=== PATIENT | male | born 1965 | race Caucasian/White ===

== ENCOUNTER 2018-04-23 17:28 | Inpatient (IN) | payer SELFPAY ==
[~2018-04-23] VITALS: Ht 182.9 cm; Wt 104.8 kg
[2018-04-23 17:33] VITALS: BP 233/109; PULSE 45; PULSE 46; RESP 16; TEMP 97.8; O2SAT 98
[2018-04-23] MEDS ORDERED: METO100T PO (17:54)
[2018-04-23] MEDS ORDERED: FURO1TAB61 PO (17:54)
[2018-04-23] MEDS ORDERED: CLON-481 PO (17:54)
[2018-04-23] MEDS ORDERED: APIX5TAB PO (17:54)
[2018-04-23] MEDS ORDERED: AMIO200T PO (17:54)
[2018-04-23] MEDS ORDERED: LISI40TA PO (17:54)
[2018-04-23] MEDS ORDERED: ZOCO80TA PO (17:54)
[2018-04-23 17:57] VITALS: RESP 18; O2SAT 98
[2018-04-23] MEDS ORDERED: cloNIDine HCL 0.2 MG TAB PO ONE (18:00)
[2018-04-23] MEDS ORDERED: NOVONP2 SQ (18:01)
[2018-04-23] MEDS ORDERED: NOVORP2 SQ (18:01)
--- NOTE | 2018-04-23 18:11 | RADRPT ---
EXAM DATE: 04/23/2018 6:07 PM EDT AGE/SEX: 52 years / Male INDICATIONS: Syncope with lowered heart rate and high blood pressure. CLINICAL DATA: This is the patient's initial encounter. Patient reports that signs and symptoms have been present for 2 weeks and indicates a pain score of 0/10. MEDICAL/SURGICAL HISTORY: Hypertension. Atrial fibrillation. None. COMPARISON: No prior exams available for comparison. FINDINGS: A single AP view of the chest demonstrates the lungs to be symmetrically aerated without evidence of mass, infiltrate or effusion. The cardiomediastinal contours are unremarkable. Osseous structures a re intact. CONCLUSION: The lungs are clear. Electronically signed by: Jim White MD 04/23/2018 6:10 PM EDT
[2018-04-23 18:23] LABS: AUTOMATED NEUTROPHIL # 6.1 TH/MM3 (1.8-7.7); BASOPHIL # 0.1 TH/MM3 (0-0.2); BASOPHIL % 0.9 % (0.0-2.0); EOSINOPHIL # 0.4 TH/MM3 (0-0.4); EOSINOPHIL % 3.4 % (0.0-4.0); HEMOGLOBIN 15.6 GM/DL (13.0-17.0); LYMPH % 32.5 % (9.0-44.0); LYMPHOCYTE # 3.5 TH/MM3 (1.0-4.8); MEAN CELL VOLUME 89.3 FL (80.0-100.0); MEAN CORPUSCULAR HEMOGLOBIN 30.4 PG (27.0-34.0); MEAN PLATELET VOLUME 9.2 FL (7.0-11.0); MONO % 7.2 % (0.0-8.0); MONOCYTE # 0.8 TH/MM3 (0-0.9); PLATELET COUNT 220 TH/MM3 (150-450); RED BLOOD COUNT 5.15 MIL/MM3 (4.50-5.90); RED CELL DISTRIBUTION WIDTH 12.3 % (11.6-17.2); WHITE BLOOD COUNT 10.8 TH/MM3 (4.0-11.0)
[2018-04-23 18:31] LABS: INTERNATIONAL NORMALIZED RATIO 1.1 RATIO; PROTHROMBIN TIME - PATIENT 10.8 SEC (9.8-11.6)
[2018-04-23 18:45] VITALS: BP 220/100; PULSE 40; RESP 17; O2SAT 99
--- NOTE | 2018-04-23 18:47 | PD ---
Data Data Last Documented VS Vital Signs Date Time Temp Pulse Resp B/P (MAP) Pulse Ox O2 Delivery O2 Flow Rate FiO2 04/23/18 17:57 18 98 Room Air 04/23/18 17:50 46 04/23/18 17:33 97.8 Orders Orders Electrocardiogram (04/23/18 ) Electrocardiogram (04/23/18 17:56) Complete Blood Count With Diff (04/23/18 17:56) Comprehensive Metabolic Panel (04/23/18 17:56) Ckmb (Isoenzyme) Profile (04/23/18 17:56) Troponin I (04/23/18 17:56) Prothrombin Time / Inr (Pt) (04/23/18 17:56) Act Partial Throm Time (Ptt) (04/23/18 17:56) Magnesium (Mg) (04/23/18 17:56) Thyroid Stimulating Hormone (04/23/18 17:56) Chest, Single Ap (04/23/18 17:56) Ct Brain W/O Iv Contrast(Rout) (04/23/18 17:56) Iv Access Insert/Monitor (04/23/18 17:56) Ecg Monitoring (04/23/18 17:56) Oximetry (04/23/18 17:56) Clonidine (Catapres) (04/23/18 18:00) Labs Laboratory Tests Test 04/23/18 18:12 White Blood Count 10.8 TH/MM3 Red Blood Count 5.15 MIL/MM3 Hemoglobin 15.6 GM/DL Hematocrit 46.0 % Mean Corpuscular Volume 89.3 FL Mean Corpuscular Hemoglobin 30.4 PG Mean Corpuscular Hemoglobin Concent 34.0 % Red Cell Distribution Width 12.3 % Platelet Count 220 TH/MM3 Mean Platelet Volume 9.2 FL Neutrophils (%) (Auto) 56.0 % Lymphocytes (%) (Auto) 32.5 % Monocytes (%) (Auto) 7.2 % Eosinophils (%) (Auto) 3.4 % Basophils (%) (Auto) 0.9 % Neutrophils # (Auto) 6.1 TH/MM3 Lymphocytes # (Auto) 3.5 TH/MM3 Monocytes # (Auto) 0.8 TH/MM3 Eosinophils # (Auto) 0.4 TH/MM3 Basophils # (Auto) 0.1 TH/MM3 CBC Comment DIFF FINAL Differential Comment Prothrombin Time 10.8 SEC Prothromb Time International Ratio 1.1 RATIO Activated Partial Thromboplast Time 24.1 SEC MDM Supervised Visit with PIOTR: Yes Narrative Course I, Dr. Rodríguez, have reviewed the advance practice practitioner's documentation and am in agreement, met with the patient face to face, made the diagnosis, and the medical decision making was done by me. *My assessment and Findings: This patient had a syncopal episode. He does not have any history of such. He has chronic A. fib on Eliquis. He is very hypertensive and very bradycardic. His heart rate is sinus rhythm and 40. He will be a telemetry hospitalization for evaluation of this. Skip Rodríguez MD Apr 23, 2018 18:47
[2018-04-23 18:56] LABS: ALBUMIN 4.1 GM/DL (3.4-5.0); AST (GOT) 25 U/L (15-37); BICARBONATE 30.2 MEQ/L (21.0-32.0); BLOOD UREA NITROGEN 18 MG/DL (7-18); CALCIUM 9.5 MG/DL (8.5-10.1); CHLORIDE 100 MEQ/L (98-107); CREATININE 1.56 MG/DL (0.60-1.30); GLOMERULAR FILTRATION RATE 47 ML/MIN (>89); GLUCOSE,RANDOM 68 MG/DL (74-106); MAGNESIUM 2.2 MG/DL (1.5-2.5); SODIUM (NA) 141 MEQ/L (136-145)
[2018-04-23 18:57] LABS: ALT (GPT) 37 U/L (12-78)
--- NOTE | 2018-04-23 19:03 | RADRPT ---
EXAM DATE: 04/23/2018 6:33 PM EDT AGE/SEX: 52 years / Male INDICATIONS: Syncopal episode with low heart rate. CLINICAL DATA: This is the patient's initial encounter. Patient reports that signs and symptoms have been present for 1 day and indicates a pain score of 0/10. MEDICAL/SURGICAL HISTORY: Cardiovascular disease. Hypertension. Diabetes. AFIB None. RADIATION DOSE: 48.95 CTDI (mGy) COMPARISON: No prior exams available for comparison. TECHNIQUE: CT of the head without contrast. Using automated exposure control and adjustment of the mA and/or kV according to patient size, radiation dose was kept as low as reasonably achievable to ob tain optimal diagnostic quality images. DICOM format image data is available electronically for revi ew and comparison. FINDINGS: Noncontrast axial head CT demonstrates the ventricles to be normal in size and configuration with a n ormal sulcal pattern. No acute intracranial hemorrhage, acute cortical infarction, mass or midline sh ift is seen. There is benign-appearing mucosal disease in the right maxillary sinus. Posterior fossa structures are unremarkable. Bone windows are unremarkable. CONCLUSION: No evidence of acute intracranial pathology. No masses are identified. Electronically signed by: Eric Angelo MD 04/23/2018 7:02 PM EDT
[2018-04-23 19:06] LABS: ALKALINE PHOSPHATASE 102 U/L (45-117); TOTAL BILIRUBIN ADULT 0.5 MG/DL (0.2-1.0); TOTAL PROTEIN 8.1 GM/DL (6.4-8.2); TROPONIN I LESS THAN 0.02 NG/ML (0.02-0.05)
--- NOTE | 2018-04-23 19:41 | PD ---
HPI Chief Complaint: Cardiac Complaint Time Seen by Provider: 17:44 Travel History International Travel<30 days: No Contact w/Intl Traveler<30days: No Traveled to known affect area: No History of Present Illness HPI 52-year-old male the presents to the ED for evaluation of syncope and high blood pressure and low heart rate. Per patient he has been having episodes of high blood pressure as well as low heart rate follow-up almost a couple of weeks now. Per patient he started since . Per patient he quit drinking on . He has been having problems with his blood pressure ever since. Per patient he does have chronic blood pressure issues and A. fib. He takes medications for this. He apparently is now moving here from [facility] and has no primary care doctor or visual design lead in the area. He follows with a doctor over there and apparently this started him on amlodipine recently. Per patient his blood pressure usually is 150 systolic but then noted that his blood pressure has been a 200 systolic almost daily and he has been having headaches as well as noted that his heart rate has been low. Per patient his heart rates below 50s. This has never happened to him before. He denies increasing his metoprolol. He denies any chest pain or shortness of breath. No urinary or bowel movement issues. No fevers chills or sweats. He states that today he was checking his blood pressure and he passed out. He does have a history of having this in the past but only since . He has not seen anybody for this. He states that he is feeling lightheaded on occasion he has a headache with it. He takes Eliquis. PFSH Past Medical History Hx Anticoagulant Therapy: Yes Atrial Fibrillation: Yes Cardiovascular Problems: Yes High Cholesterol: Yes Diabetes: Yes Patient Takes Glucophage: No Diminished Hearing: No Hypertension: Yes Medical other: Yes Tetanus Vaccination: > 5 Years Influenza Vaccination: No Past Surgical History Cardiac Surgery: Yes (cardiac cath) Social History Alcohol Use: Yes (frequently) Tobacco Use: Yes (ocassionally) Substance Use: No Allergies-Medications (Allergen,Severity, Reaction): Coded Allergies: No Known Allergies (Verified Allergy, Unknown, 04/23/18) Reported Meds & Prescriptions Reported Meds & Active Scripts Active Reported Novolin N Inj (Insulin Human NPH) 1,000 Unit/10 Ml Vial 0 SQ BID Sliding Scale As Directed. Novolin R Inj (Insulin Human Regular) 1,000 Unit/10 Ml Vial 1-9 Units SQ ACHS Max dose at bedtime:( )units; sugars less than 70,(0) units; sugars 150-199,(1)unit; sugars 200-249,(3)units; sugars 250-299,(5) units; sugars 300-349,(7)units; sugars greater than 349,(9)units Amiodarone (Amiodarone HCl) 200 Mg Tab 200 Mg PO DAILY Lasix (Furosemide) 80 Mg Tab 80 Mg PO DAILY Metoprolol Tartrate 100 Mg Tab 100 Mg PO BID Lisinopril 40 Mg Tab 40 Mg PO DAILY Catapres (Clonidine) 0.3 Mg Tab 0.3 Mg PO TID Zocor (Simvastatin) 80 Mg Tab 80 Mg PO HS Eliquis (Apixaban) 5 Mg Tab 5 Mg PO BID Review of Systems Except as stated in HPI: all other systems reviewed are Neg Physical Exam Narrative GENERAL: SKIN: Warm and dry. HEAD: Atraumatic. Normocephalic. EYES: Pupils equal and round. No scleral icterus. No injection or drainage. ENT: No nasal bleeding or discharge. Mucous membranes pink and moist. Tongue is midline. No uvula deviation NECK: Trachea midline. No JVD. CARDIOVASCULAR: Bradicardic rate and rhythm. No murmurs, S3, S4. RESPIRATORY: No accessory muscle use. Clear to auscultation. Breath sounds equal bilaterally. GASTROINTESTINAL: Abdomen soft, non-tender, nondistended. Hepatic and splenic margins not palpable. MUSCULOSKELETAL: Extremities without clubbing, cyanosis, or edema. No obvious deformities. Full range of motion of the upper and lower extremities bilaterally. 2+ pulses bilaterally. NEUROLOGICAL: Awake and alert. No obvious cranial nerve deficits. Motor grossly within normal limits. Five out of 5 muscle strength in the arms and legs. Normal speech. PSYCHIATRIC: Appropriate mood and affect; insight and judgment normal. Data Data Last Documented VS Vital Signs Date Time Temp Pulse Resp B/P (MAP) Pulse Ox O2 Delivery O2 Flow Rate FiO2 04/23/18 18:45 40 17 220/100 (140) 99 Room Air 04/23/18 17:33 97.8 Orders Orders Electrocardiogram (04/23/18 ) Electrocardiogram (04/23/18 17:56) Complete Blood Count With Diff (04/23/18 17:56) Comprehensive Metabolic Panel (04/23/18 17:56) Ckmb (Isoenzyme) Profile (04/23/18 17:56) Troponin I (04/23/18 17:56) Prothrombin Time / Inr (Pt) (04/23/18 17:56) Act Partial Throm Time (Ptt) (04/23/18 17:56) Magnesium (Mg) (04/23/18 17:56) Thyroid Stimulating Hormone (04/23/18 17:56) Chest, Single Ap (04/23/18 17:56) Ct Brain W/O Iv Contrast(Rout) (04/23/18 17:56) Iv Access Insert/Monitor (04/23/18 17:56) Ecg Monitoring (04/23/18 17:56) Oximetry (04/23/18 17:56) Clonidine (Catapres) (04/23/18 18:00) CKMB (04/23/18 18:12) CKMB% (04/23/18 18:12) Nifedipine Sr (Procardia Xl) (04/23/18 20:15) Labs Laboratory Tests Test 04/23/18 18:12 White Blood Count 10.8 TH/MM3 Red Blood Count 5.15 MIL/MM3 Hemoglobin 15.6 GM/DL Hematocrit 46.0 % Mean Corpuscular Volume 89.3 FL Mean Corpuscular Hemoglobin 30.4 PG Mean Corpuscular Hemoglobin Concent 34.0 % Red Cell Distribution Width 12.3 % Platelet Count 220 TH/MM3 Mean Platelet Volume 9.2 FL Neutrophils (%) (Auto) 56.0 % Lymphocytes (%) (Auto) 32.5 % Monocytes (%) (Auto) 7.2 % Eosinophils (%) (Auto) 3.4 % Basophils (%) (Auto) 0.9 % Neutrophils # (Auto) 6.1 TH/MM3 Lymphocytes # (Auto) 3.5 TH/MM3 Monocytes # (Auto) 0.8 TH/MM3 Eosinophils # (Auto) 0.4 TH/MM3 Basophils # (Auto) 0.1 TH/MM3 CBC Comment DIFF FINAL Differential Comment Prothrombin Time 10.8 SEC Prothromb Time International Ratio 1.1 RATIO Activated Partial Thromboplast Time 24.1 SEC Blood Urea Nitrogen 18 MG/DL Creatinine 1.56 MG/DL Random Glucose 68 MG/DL Total Protein 8.1 GM/DL Albumin 4.1 GM/DL Calcium Level 9.5 MG/DL Magnesium Level 2.2 MG/DL Alkaline Phosphatase 102 U/L Aspartate Amino Transf (AST/SGOT) 25 U/L Alanine Aminotransferase (ALT/SGPT) 37 U/L Total Bilirubin 0.5 MG/DL Sodium Level 141 MEQ/L Potassium Level 3.7 MEQ/L Chloride Level 100 MEQ/L Carbon Dioxide Level 30.2 MEQ/L Anion Gap 11 MEQ/L Estimat Glomerular Filtration Rate 47 ML/MIN Total Creatine Kinase 163 U/L Creatine Kinase MB 2.3 NG/ML Troponin I LESS THAN 0.02 NG/ML Thyroid Stimulating Hormone 3rd Gen 1.280 uIU/ML MDM Medical Decision Making Medical Screen Exam Complete: Yes Emergency Medical Condition: Yes Medical Record Reviewed: Yes Interpretation(s) CBC & BMP Diagram 04/23/18 18:12 Total Protein 8.1, Albumin 4.1, Calcium Level 9.5, Magnesium Level 2.2, Alkaline Phosphatase 102, Aspartate Amino Transf (AST/SGOT) 25, Alanine Aminotransferase (ALT/SGPT) 37, Total Bilirubin 0.[address] 04/23/181755 Signed Impressions: CONCLUSION: No evidence of acute intracranial pathology. No masses are identified. Chest X-Ray 04/23/181755 Signed Impressions: CONCLUSION: The lungs are clear. Troponin and CK-MB negative EKG shows sinus bradycardia but no sign of acute ischemia read by me and attending. Differential Diagnosis Hypertensive emergency versus hypertensive urgency versus syncope versus presyncope versus arrhythmia versus symptomatic bradycardia versus medication side effect versus ACS Narrative Course 52-year-old male the presents to the ED for evaluation of high blood pressure, syncope and bradycardia. Patient was properly examined and was found to have signs and symptoms of unclear etiology. He does take multiple medications for blood pressure and I wonder if this is related to that. He was recently started amlodipine on January and his symptoms started since . His been having a lot of passing out events. His blood pressure is high but his rate is slow in the 40s. He has had multiple syncopal episodes. Labs and imaging were ordered. EKG showed sinus bradycardia otherwise no sign of acute ischemia and arrhythmia. Blood pressure elevated and was given clonidine as before she would not have hydralazine IV in the ED to see if it will help. It brought down his blood pressure somewhat. Labs and imaging otherwise unremarkable. No sign of CVA. Unclear to go the symptoms were as highly suspect that his bradycardia is causing the syncopal episodes. At this time a recommend admission for further evaluation as patient has no primary care doctor in the area and has never had the syncopal episodes before. He currently has no cardio is in the area and his doctors are in [facility]. Patient and my attending Dr. Rodríguez who evaluated the patient with me and agrees with plan. Patient agrees to admission. CYNDI was paged and Dr Sanches agrees with admission. Diagnosis Primary Impression: Syncope Qualified Codes: R55 - Syncope and collapse Additional Impressions: Bradycardia Hypertensive urgency Admitting Information Admitting Physician Requests: Observation Yousuf Gunn Apr 23, 2018 19:41
--- NOTE | 2018-04-23 20:06 | HHI.HP ---
[facility] No Primary Care Physician Admission Diagnosis Diagnoses: (1) Syncope Diagnosis: Principal (2) Bradycardia Diagnosis: Principal (3) A-fib Diagnosis: Principal (4) HTN (hypertension) Diagnosis: Principal (5) Renal insufficiency Diagnosis: Principal (6) Alcohol use Diagnosis: Principal (7) DM (diabetes mellitus) Diagnosis: Principal Travel History International Travel<30 Days: No Contact w/Intl Traveler <30 Da: No Traveled to Known Affected Are: No History of Present Illness This is a 52-year-old male with a PMH of A. fib on Eliquis, HTN, Hyperlipidemia , DM and h/o Alcohol Abuse who was brought to the ER after syncopal event. Reports dizziness, lightheadedness prior to syncope. States he's had h/o similar symptoms in the past for which he was being seen by his Kitchen Runner in [place], however he recently moved here 2 months ago and doesn't have local Kitchen Runner. Also admits to history of heavy alcohol abuse, drinks 1/5th of vodka regularly, however states he quit drinking after and has had worsening dizziness and "shakiness" since then. Notes associated chest pressure , substernal, intermittent, moderate, 6/10, nonradiating. On arrival, BP 233/ 109, HR 45, O2 sat 98% on RA, Afebrile. S/p Clonidine in ER. CBC unremarkable. Chemistry unremarkable except for creatinine 1.56, no previous labs for comparison. Troponin negative. INR 1.1. CXR with no acute findings. CT Head negative. Review of Systems Except as stated in HPI: all other systems reviewed are Neg ROS: 14 point review of systems otherwise negative. Past Family Social History Past Medical History PMH: A. fib on Eliquis, HTN, Hyperlipidemia, DM and h/o Alcohol Abuse Past Surgical History PAST SURGICAL HISTORY: Cardiac Cath Allergies: Coded Allergies: No Known Allergies (Verified Allergy, Unknown, 04/23/18) Family History PAST FAMILY HISTORY: Reviewed. No h/o DM or CAD Social History PAST SOCIAL HISTORY: h/o Alcohol Abuse, quit 3wks ago. Occasional tobacco. Negative for drugs. Physical Exam Vital Signs Vital Signs Date Time Temp Pulse Resp B/P (MAP) Pulse Ox O2 Delivery O2 Flow Rate FiO2 04/23/18 18:45 40 17 220/100 (140) 99 Room Air 04/23/18 17:57 18 98 Room Air 04/23/18 17:50 46 20 98 Room Air 04/23/18 17:33 97.8 45 16 233/109 (150) 98 Physical Exam PE: GENERAL: Pleasant middle-aged white male in no acute distress. HEENT: PERRLA, EOMI. No scleral icterus or conjunctival pallor. No lid lag or facial droop. CARDIOVASCULAR: Regular rate and rhythm. No obvious murmurs to auscultation. No chest tenderness to palpation. RESPIRATORY: No obvious rhonchi or wheezing. Clear to auscultation. Breath sounds equal bilaterally. GASTROINTESTINAL: Abdomen soft, non-tender, nondistended. BS normal. MUSCULOSKELETAL: Extremities without clubbing, cyanosis, or edema. No obvious deformities. NEUROLOGICAL: Awake, alert and oriented x4. No focal neurologic deficits. Moving both upper and lower extremities spontaneously. Laboratory Laboratory Tests Test 04/23/18 18:12 White Blood Count 10.8 Red Blood Count 5.15 Hemoglobin 15.6 Hematocrit 46.0 Mean Corpuscular Volume 89.3 Mean Corpuscular Hemoglobin 30.4 Mean Corpuscular Hemoglobin Concent 34.0 Red Cell Distribution Width 12.3 Platelet Count 220 Mean Platelet Volume 9.2 Neutrophils (%) (Auto) 56.0 Lymphocytes (%) (Auto) 32.5 Monocytes (%) (Auto) 7.2 Eosinophils (%) (Auto) 3.4 Basophils (%) (Auto) 0.9 Neutrophils # (Auto) 6.1 Lymphocytes # (Auto) 3.5 Monocytes # (Auto) 0.8 Eosinophils # (Auto) 0.4 Basophils # (Auto) 0.1 CBC Comment DIFF FINAL Differential Comment Prothrombin Time 10.8 Prothromb Time International Ratio 1.1 Activated Partial Thromboplast Time 24.1 Blood Urea Nitrogen 18 Creatinine 1.56 Random Glucose 68 Total Protein 8.1 Albumin 4.1 Calcium Level 9.5 Magnesium Level 2.2 Alkaline Phosphatase 102 Aspartate Amino Transf (AST/SGOT) 25 Alanine Aminotransferase (ALT/SGPT) 37 Total Bilirubin 0.5 Sodium Level 141 Potassium Level 3.7 Chloride Level 100 Carbon Dioxide Level 30.2 Anion Gap 11 Estimat Glomerular Filtration Rate 47 Total Creatine Kinase 163 Creatine Kinase MB 2.3 Troponin I LESS THAN 0.02 Thyroid Stimulating Hormone 3rd Gen 1.280 Result Diagram: 04/23/18181104/23/181811 Caprini VTE Risk Assessment Caprini VTE Risk Assessment: Mod/High Risk (score >= 2) Caprini Risk Assessment Model Point Value = 1 Point Value = 2 Point Value = 3 Point Value = 5 Age 41-60 Minor surgery BMI > 25 kg/m2 Swollen legs Varicose veins or History of unexplained or recurrent spontaneous Oral contraceptives or hormone replacement Sepsis (< 1 month) Serious lung disease, including pneumonia (< 1 month) Abnormal pulmonary function Acute myocardial infarction Congestive heart failure (< 1 month) History of inflammatory bowel disease Medical patient at bed rest Age 61-74 Arthroscopic surgery Major open surgery (> 45 min) Laparoscopic surgery (> 45 min) Malignancy Confined to bed (> 72 hours) Immobilizing plaster cast Central venous access Age >= 75 History of VTE Family history of VTE Factor V Leiden Prothrombin [id number] Lupus anticoagulant Anticardiolipin antibodies Elevated serum homocysteine Heparin-induced thrombocytopenia Other congenital or acquired thrombophilia Stroke (< 1 month) Elective arthroplasty Hip, pelvis, or leg fracture Acute spinal cord injury (< 1 month) Prophylaxis Regimen Total Risk Factor Score Risk Level Prophylaxis Regimen 0-1 Low Early ambulation 2 Moderate Order ONE of the following: *Sequential Compression Device (SCD) *Heparin 5000 units SQ BID 3-4 Higher Order ONE of the following medications: *Heparin 5000 units SQ TID *Enoxaparin/Lovenox 40 mg SQ daily (WT < 150 kg, CrCl > 30 mL/min) *Enoxaparin/Lovenox 30 mg SQ daily (WT < 150 kg, CrCl > 10-29 mL/min) *Enoxaparin/Lovenox 30 mg SQ BID (WT < 150 kg, CrCl > 30 mL/min) AND/OR *Sequential Compression Device (SCD) 5 or more Highest Order ONE of the following medications: *Heparin 5000 units SQ TID (Preferred with Epidurals) *Enoxaparin/Lovenox 40 mg SQ daily (WT < 150 kg, CrCl > 30 mL/min) *Enoxaparin/Lovenox 30 mg SQ daily (WT < 150 kg, CrCl > 10-29 mL/min) *Enoxaparin/Lovenox 30 mg SQ BID (WT < 150 kg, CrCl > 30 mL/min) AND *Sequential Compression Device (SCD) Assessment and Plan Problem List: (1) Syncope ICD Code: R55 - Syncope and collapse Status: Acute (2) Bradycardia ICD Code: R00.1 - Bradycardia, unspecified Status: Acute (3) A-fib ICD Code: I48.91 - Unspecified atrial fibrillation (4) HTN (hypertension) ICD Code: I10 - Essential (primary) hypertension (5) Renal insufficiency ICD Code: N28.9 - Disorder of kidney and ureter, unspecified (6) Alcohol use ICD Code: Z78.9 - Other specified health status (7) DM (diabetes mellitus) ICD Code: E11.9 - Type 2 diabetes mellitus without complications Assessment and Plan A/P: 1. Syncope: likely due to symptomatic bradycardia, CT Head with no acute findings, images reviewed by me. Admit for Observation, Telemetry, check serial cardiac enzymes. Check Echo to eval for valvular abnormality/ cardiomyopathy. Consult Cardiology as needed. 2. Bradycardia: significant bradycardia w/ syncopal event/lightheadedness, HR 40's. Will hold Metoprolol, Clonidine and Amiodarone for right now. Telemetry , check Echo as above. Consult Cardiology for further evaluation/intervention. Check serial cardiac enzymes to r/o ACS as etiology for bradycardia 3. Afib: Chronic, controlled. Resume home Eliquis, hold Amiodarone and Metoprolol in light of above. Monitor on telemetry 4. HTN: Uncontrolled. BP 233/109, HR 45, hold B-anastacio/Clonidine for bradycardia, Hydralazine/Nifedipine as needed. 5. Renal Insufficiency: Creatinine 1.56, no previous labs for comparison. Presumably acute. IVF for hydration, monitor I/O. Check U/a and UDS. Repeat labs in am. 6. Alcohol Use/Abuse: h/o heavy alcohol abuse, quit 3wks ago, occasional tremulousness, CIWA, Seizure Precautions, MVT/Thiamine/Folate replacement. 7. DM: Sliding scale w/ Accu-Cheks 8. DVT Prophylaxis: Resume Eliquis 9. Social work for d/c planning as needed 10. Case discussed w/ ER physician at length, labs/records/imaging reviewed by me. Problem Qualifiers (1) Syncope: Qualified Codes: R55 - Syncope and collapse Kika Sanches MD Apr 23, 2018 20:06
[2018-04-23] MEDS ORDERED: ACETAMINOPHEN/HYDROcodone 325 MG/5 MG TAB PO PRN (20:15)
[2018-04-23] MEDS ORDERED: MAGNESIUM HYDROXIDE SUSP 30 ML CUP PO PRN (20:15)
[2018-04-23] MEDS ORDERED: GLUCAGON 1 MG/ML VIAL OTHER PRN (20:15)
[2018-04-23] MEDS ORDERED: LACTULOSE SYRUP 20 GM/30 ML CUP PO PRN (20:15)
[2018-04-23] MEDS ORDERED: BISACODYL 10 MG SUPP RECTAL PRN (20:15)
[2018-04-23] MEDS ORDERED: METOCLOPRAMIDE HCL 10 MG/2 ML VIAL IV PUSH PRN (20:15)
[2018-04-23] MEDS ORDERED: SENNOSIDES 8.6 MG TAB PO PRN (20:15)
[2018-04-23] MEDS ORDERED: DEXTROSE 50% IN WATER 50 ML VIAL(D50) IV PUSH PRN (20:15)
[2018-04-23] MEDS ORDERED: SODIUM CHLORIDE 0.9% FLUSH 10 ML FLUSH IV FLUSH PRN (20:15)
[2018-04-23] MEDS ORDERED: NIFEdipine 30 MG SUSTAINED RELEASE TAB PO ONE (20:15)
[2018-04-23] MEDS ORDERED: ACETAMINOPHEN 325 MG TAB PO PRN (20:15)
[2018-04-23] MEDS: APIXABAN 5 MG TABLET PO SCH (20:22)
[2018-04-23 20:24] VITALS: BP 179/102; PULSE 44; RESP 18; O2SAT 98
[2018-04-23] MEDS: SODIUM CHLOR 0.9% 1000 ML INJ 1,000 ML IV SCH (20:42)
[2018-04-23] MEDS: DOCUSATE SODIUM 50 MG/SENNA 8.6 MG TAB PO SCH (20:42)
[2018-04-23] MEDS: SODIUM CHLORIDE 0.9% FLUSH 10 ML FLUSH IV FLUSH SCH (20:43)
[2018-04-23] MEDS: INSULIN ASPART SUPPLEMENTAL SCALE SQ SCH (20:49)
[2018-04-23] MEDS ORDERED: HALOPERIDOL LACTATE 5 MG/ML AMP IM PRN (21:00)
[2018-04-23] MEDS ORDERED: LORazepam 2 MG TAB PO PRN (21:00)
[2018-04-23] MEDS ORDERED: LORazepam 1 MG TAB PO PRN (21:00)
[2018-04-23] MEDS ORDERED: FLUMAZENIL 0.5 MG/5 ML VIAL IV PUSH PRN (21:00)
[2018-04-23] MEDS ORDERED: LORazepam 2 MG/ML VIAL IV PUSH PRN ×3 (21:00)
[2018-04-23 21:07] VITALS: BP 179/102; PULSE 42; RESP 16; O2SAT 98
[2018-04-23] MEDS: THIAMINE HCL 100 MG TAB PO SCH (21:12)
[2018-04-23 21:53] VITALS: BP 156/87; PULSE 43; RESP 16; TEMP 97.8; O2SAT 98
[2018-04-24] VITALS (11 sets, daily range): BP systolic 166–211; BP diastolic 81–108; PULSE 45–57; RESP 16–20; TEMP 95.3–98.8; O2SAT 94–98
[2018-04-24] MEDS: SODIUM CHLOR 0.9% 1000 ML INJ 1,000 ML IV SCH (05:05)
[2018-04-24 05:32] LABS: BILIRUBIN, URINE NEG (NEG); BLOOD, URINE NEG (NEG); GLUCOSE,URINE >=500 mg/dL (NEG); HYALINE CAST, URINE 7 /lpf (RARE); KETONE, URINE NEG (NEG); MUCUS URINE FEW /lpf (OCC); NITRITE,URINE NEG (NEG); URINE COLOR YELLOW (YELLW/STRAW); URINE LEUKOCYTE ESTERASE NEG (NEG)
[2018-04-24 06:41] LABS: ALBUMIN 3.5 GM/DL (3.4-5.0); ALKALINE PHOSPHATASE 97 U/L (45-117); ALT (GPT) 31 U/L (12-78); AST (GOT) 22 U/L (15-37); BICARBONATE 28.6 MEQ/L (21.0-32.0); BLOOD UREA NITROGEN 13 MG/DL (7-18); CALCIUM 8.4 MG/DL (8.5-10.1); CHLORIDE 102 MEQ/L (98-107); CREATININE 1.28 MG/DL (0.60-1.30); GLOMERULAR FILTRATION RATE 59 ML/MIN (>89); GLUCOSE,RANDOM 408 MG/DL (74-106); SODIUM (NA) 139 MEQ/L (136-145); TOTAL BILIRUBIN ADULT 0.4 MG/DL (0.2-1.0); TOTAL PROTEIN 6.8 GM/DL (6.4-8.2); TROPONIN I LESS THAN 0.02 NG/ML (0.02-0.05)
[2018-04-24 07:23] LABS: BASOPHIL % 0.4 % (0.0-2.0); EOSINOPHIL # 0.2 TH/MM3 (0-0.4); EOSINOPHIL % 2.8 % (0.0-4.0); HEMATOCRIT 43.5 % (39.0-51.0); HEMOGLOBIN 14.8 GM/DL (13.0-17.0); LYMPH % 34.3 % (9.0-44.0); MEAN CORPUSCULAR HEMOGLOBIN 30.6 PG (27.0-34.0); MEAN PLATELET VOLUME 9.9 FL (7.0-11.0); MONO % 5.2 % (0.0-8.0); MONOCYTE # 0.5 TH/MM3 (0-0.9); NEUT % 57.3 % (16.0-70.0); PLATELET COUNT 171 TH/MM3 (150-450); RED BLOOD COUNT 4.83 MIL/MM3 (4.50-5.90); RED CELL DISTRIBUTION WIDTH 12.6 % (11.6-17.2); WHITE BLOOD COUNT 8.8 TH/MM3 (4.0-11.0)
[2018-04-24] MEDS: INSULIN ASPART SUPPLEMENTAL SCALE SQ SCH ×4 (08:00→20:58)
[2018-04-24] MEDS: THIAMINE HCL 100 MG TAB PO SCH (08:30)
[2018-04-24] MEDS: APIXABAN 5 MG TABLET PO SCH ×2 (08:31→20:57)
[2018-04-24] MEDS: FOLIC ACID 1 MG TAB PO SCH (08:32)
[2018-04-24] MEDS: SODIUM CHLORIDE 0.9% FLUSH 10 ML FLUSH IV FLUSH SCH ×2 (08:32→20:59)
[2018-04-24] MEDS: DOCUSATE SODIUM 50 MG/SENNA 8.6 MG TAB PO SCH ×2 (08:32→20:57)
[2018-04-24] MEDS: MULTIVITAMINS/MINERALS THERAPEUTIC TAB PO SCH (08:32)
[2018-04-24] MEDS: HYDROCHLOROTHIAZIDE 25 MG TAB PO SCH (08:45)
[2018-04-24] MEDS: LISINOPRIL 10 MG TAB PO SCH (08:45)
--- NOTE | 2018-04-24 08:49 | MB ---
cc: Mikel Jacob MD DATE: 04/24/2018 REASON FOR CONSULTATION: Syncope. HISTORY OF PRESENT ILLNESS: The patient is a very pleasant 52-year-old gentleman with a history of paroxysmal atrial fibrillation. The patient has previously been managed in [place] where he says he has had a cardioversion and atrial fibrillation ablation that was unsuccessful, partially due to his continued drinking. He has also apparently had a cardiac catheterization, which was normal, about 5 years ago. He lost his job and has moved to [place] and has been here for the last couple of months taking his medications, but he has not seen any physicians. Over the last month or so, he has noticed his blood pressure increasing and his heart rate continually being under 50. He has also felt a progressive exercise intolerance as well as periodic lightheadedness. He also notes a general pressure in the central chest, which is nonexertional and fairly long lasting over the last several weeks. Finally, he had an episode of actual syncope when he was taking his blood pressure yesterday. He says the cuff was inflating and all of a sudden he was on the floor and heard the blood pressure machine crash to the floor. He then presented to the hospital where he was found to be in a fairly slow sinus bradycardia. Currently, he is asymptomatic except some minor residual chest discomfort, which again is fairly long lasting. He is not currently lightheaded or dizzy or short of breath. PAST MEDICAL HISTORY: 1. Atrial fibrillation as described above, maintained on Eliquis. 2. Prior tobacco abuse. 3. Current alcohol abuse. 4. Hypertension. 5. Diabetes. CURRENT MEDICATIONS: 1. Folate. 2. Thiamine. 3. Eliquis 5 mg b.i.d. ALLERGIES: NO KNOWN DRUG ALLERGIES. PHYSICAL EXAMINATION: VITAL SIGNS: Afebrile, pulse 45, respiratory rate 16, blood pressure 166/81, saturating 95. Initial blood pressure was 233/109 GENERAL: Pleasant gentleman, in no distress. NECK: No JVD. LUNGS: Clear to auscultation bilaterally. CARDIOVASCULAR: Regular rate and rhythm. No murmurs appreciated. ABDOMEN: Benign. EXTREMITIES: No edema. LABORATORY DATA: White count 8.8, hematocrit 43.5, platelets 171. Sodium 139, potassium 3.8, chloride 102, bicarbonate 28.6, BUN 59, creatinine 1.28, glucose 408. Cardiac enzymes are normal. Toxicology is normal. IMAGING STUDIES: Chest x-ray showed clear lungs. Head CT was normal. EKG shows sinus bradycardia at 48 with signs of LVH and a left bundle branch block/nonspecific interventricular conduction delay. ASSESSMENT AND PLAN: 1. Syncope. The patient likely had an episode of bradycardia induced syncope, though potentially other arrhythmias are possible. Currently, his metoprolol and amiodarone have been held. He will have an echocardiogram, carotid Dopplers and we will watch him on telemetry. At some point, he might require a longer term monitor as an outpatient. 2. Chest pain. Chest pain is fairly atypical and he had a normal cardiac catheterization about 5 years ago. I will have him undergo a nuclear stress test. 3. Hypertension. I will introduce some antihypertensive medications. We will start with an ARB and a diuretic. Further recommendations based on the above. Thank you again for the opportunity to participate in the patient's care. MD MARIIA Huerta/MARGI , 08:21 AM , 08:48 AM
[2018-04-24] MEDS: ACETAMINOPHEN/HYDROcodone 325 MG/10 MG TAB PO PRN (08:50)
--- NOTE | 2018-04-24 10:54 | RADRPT ---
EXAM DATE: 04/24/2018 10:50 AM EDT AGE/SEX: 52 years / Male INDICATIONS: Syncope. CLINICAL DATA: This is the patient's initial encounter. Patient reports that signs and symptoms have been present for 1 day and indicates a pain score of 0/10. MEDICAL/SURGICAL HISTORY: . Hypertension. Hyperlipidemia. Type II diabetes. Atrial fibrillati on. . Cardiac catheterization. COMPARISON: No prior exams available for comparison. No external comparison. VELOCITY PARAMETERS: ICA/CCA Ratio: Right 0.5 , Left 0.6 ICA: Right 56 cm/sec, Left 48 cm/sec CCA: Right 107 cm/sec, Left 82 cm/sec ECA: Right 79 cm/sec, Left 86 cm/sec Vertebral: Right 55 cm/sec antegrade, Left 0 cm/sec absent FINDINGS: Right Carotid: Mild arteriosclerotic plaque is visualized.The waveforms are within normal limits. Left Carotid: Mild arteriosclerotic plaque is visualized. The waveforms are within normal limits. Other: No flow seen in left vertebral artery. CONCLUSION: 1. No hemodynamically significant stenosis in either carotid artery 2. No flow in left vertebral artery Electronically signed by: Fred Merrill MD 04/24/2018 10:52 AM EDT
[2018-04-24] MEDS ORDERED: REGADENOSON INJ 0.4 MG/5 ML SYR ONE (12:51)
--- NOTE | 2018-04-24 12:54 | HHI.PR ---
Subjective Remarks Pt seen and examined for follow-up of bradycardia and syncope. AFVSS. No acute events overnight. Pt's only complaint is a frontal headache with associated photophobia and mild nausea. He reports he has been getting frequent migraines recently and wonders if it is secondary to his uncontrolled blood pressure. He also endorses feeling shaky but states his last drink was about two weeks ago. He denies dizziness, palpitations, or chest pain. Objective Vital Signs Date Time Temp Pulse Resp B/P (MAP) Pulse Ox O2 Delivery O2 Flow Rate FiO2 04/24/18 09:52 45 04/24/18 08:00 95.3 47 20 180/97 (124) 97 04/24/18 04:00 45 04/24/18 03:19 97.9 48 16 166/81 (109) 95 04/24/18 00:00 57 04/23/18 21:55 04/23/18 21:53 97.8 43 16 156/87 (110) 98 04/23/18 21:07 42 16 179/102 (127) 98 Room Air 04/23/18 20:24 44 18 179/102 (127) 98 Room Air 04/23/18 18:45 40 17 220/100 (140) 99 Room Air 04/23/18 17:57 18 98 Room Air 04/23/18 17:50 46 20 98 Room Air 04/23/18 17:33 97.8 45 16 233/109 (150) 98 I/O 04/23/18 04/23/18 04/23/18 04/24/18 04/24/18 04/24/18 07:00 15:00 23:00 07:00 15:00 23:00 Intake Total 850 ml Balance 850 ml Intake Oral 850 ml # Voids 2 Result Diagram: 04/24/18 0620 04/24/18 0545 Imaging Myocardial Perfusion Scan Nuc Med 04/24/18 0000 Signed Impressions: CONCLUSION: 1. Matched defects at the apex. 2. No reversible perfusion defects. 3. Ejection fraction 43%. Carotid Artery Ultrasound 04/24/18 0000 Signed Impressions: CONCLUSION: 1. No hemodynamically significant stenosis in either carotid artery 2. No flow in left vertebral artery Head CT 04/23/18 5376 Signed Impressions: CONCLUSION: No evidence of acute intracranial pathology. No masses are identified. Chest X-Ray 04/23/18 0441 Signed Impressions: CONCLUSION: The lungs are clear. Objective Remarks GENERAL: WN, WD male resting in bed in NAD. SKIN: Warm and dry. HEENT: AT/NC. Pupils equal and round. MMM. NECK: Supple no tender LAD or JVD. HEART: RRR no m/r/g. LUNGS: CTAB without wheezes or crackles. ABDOMEN: +BS, soft, NT, ND. EXTREMITIES: No LE edema. 2+ pedal pulses. NEURO: Awake and alert. Nonfocal. PSYCH: Appropriate mood and affect. A/P Assessment and Plan 52 YOWM with history of atrial fibrillation, HTN, HLD, and DM admitted overnight for evaluation of syncope. 1. Syncope - CT head negative - Carotid U/S with no hemodynamically significant stenosis - 2D echo ordered - Monitor on telemetry - Hold home metoprolol and amiodarone given significant bradycardia - Cardiology consulted, appreciate evaluation 2. Chest pain - Troponin negative x 3 - EKG reviewed by me showing sinus bradycardia with LVH and LBBB - Cardiology following, undergoing nuclear stress test 3. Bradycardia - Avoid negative ionotropic meds - Cardiology following 4. DEIRDRE - Improving - Creatinine down to 1.28 from 1.56 - Avoid nephrotoxic agents and continue to closely monitor 5. DM - SSI per protocol - Monitor Accuchecks 6. HTN - BPs significantly elevated - Holding home metoprolol given syncope int he setting of bradycardia - Started on Lisinopril and HCTZ - Monitor BP 7. HLD - Resume home statin 8. Atrial fibrillation - Rate-controlled - Continue Eliquis 9. Headache - Toradol PRN - Antiemetics PRN DVT prophylaxis: On Eliquis Discharge Planning Possibly D/C tomorrow if cleared by cardiology Sana Worthington MD Apr 24, 2018 12:54
--- NOTE | 2018-04-24 13:55 | RADRPT ---
EXAM DATE: 04/24/2018 1:51 PM EDT AGE/SEX: 52 years / Male INDICATIONS:Angina. Atrial fibrillation Chest pain. CLINICAL DATA: This is the patient's initial encounter. Patient reports that signs and symptoms have been present for 1 day and indicates a pain score of 5/10. MEDICAL/SURGICAL HISTORY: Hypertension. Diabetes mellitus type II. None. COMPARISON: No prior exams available for comparison. DOSE: 10.3 mCi Tc 99m Myoview at rest 30 mCi [id number] at rest 0.4 mg Lexiscan STRESS SYMPTOMS: Chest pressure, dyspnea, flushed and stomach pain. EJECTION FRACTION: 43 % TECHNIQUE: The patient underwent pharmacologic stress with infusion of prescribed dose. Continuous ECG tracing was monitored during stress. Gated SPECT imaging was performed after stress and conventi onal SPECT imaging was performed at rest. The examination was performed on a SPECT/CT scanner, both attenuation and non-corrected datasets were reviewed. FINDINGS: Distribution: The maximum perfused segment at stress is in the anterolateral wall. Perfusion Study: Matched defects at the apex. No reversible perfusion defects. Gated Study: There are intact wall motion and wall thickening without hypokinetic or dyskinetic segm ents. The ejection fraction is calculated at 43%. RISK CATEGORY: Intermediate (1-3 % Annual Mortality Rate) CONCLUSION: 1. Matched defects at the apex. 2. No reversible perfusion defects. 3. Ejection fraction 43%. Electronically signed by: Fred Merrill MD 04/24/2018 1:54 PM EDT
--- NOTE | 2018-04-24 15:08 | EKG ---
Date Performed: 04/23/2018 Time Performed: 17:51:26 PTAGE: 52 years EKG: SINUS BRADYCARDIA WITH SINUS ARRHYTHMIA MARKED LEFT AXIS DEVIATION LEFT BUNDLE BRANCH BLOCK ABNORMAL ECG NO PREVIOUS TRACING DOCTOR: Juni Isaacs Interpretating Date/Time 04/24/2018 15:06:56
--- NOTE | 2018-04-24 15:33 | EKG ---
Date Performed: 04/24/2018 Time Performed: 05:46:34 PTAGE: 52 years EKG: SINUS BRADYCARDIA MARKED LEFT AXIS DEVIATION LEFT BUNDLE BRANCH BLOCK ABNORMAL ECG PREVIOUS TRACING 04/24/2018 @ 12.14 Since the previous tracing, no significant change not ed DOCTOR: Juni Isaacs Interpretating Date/Time 04/24/2018 15:31:19
[2018-04-24] MEDS: KETOROLAC TROMETHAMINE 30 MG/ML (IVP) VIAL IV PUSH PRN (15:45)
[2018-04-24] MEDS: cloNIDine HCL 0.1 MG TAB PO PRN (16:21)
--- NOTE | 2018-04-24 16:57 | EKG ---
Date Performed: 04/24/2018 Time Performed: 00:14:21 PTAGE: 52 years EKG: SINUS BRADYCARDIA MARKED LEFT AXIS DEVIATION LEFT BUNDLE BRANCH BLOCK ABNORMAL ECG Since PREVIOUS TRACING , no significant change noted PREVIOUS TRACIN04/23/2018 17.51 DOCTOR: Juni Isaacs Interpretating Date/Time 04/24/2018 16:56:01
[2018-04-25] VITALS (11 sets, daily range): BP systolic 150–213; BP diastolic 82–105; PULSE 49–60; RESP 16–18; TEMP 98–98.5; O2SAT 96–98
[2018-04-25] MEDS: cloNIDine HCL 0.1 MG TAB PO PRN ×2 (04:04→10:07)
[2018-04-25] MEDS: MULTIVITAMINS/MINERALS THERAPEUTIC TAB PO SCH (07:40)
[2018-04-25] MEDS: THIAMINE HCL 100 MG TAB PO SCH (07:41)
[2018-04-25] MEDS: LISINOPRIL 10 MG TAB PO SCH (07:41)
[2018-04-25] MEDS: SODIUM CHLORIDE 0.9% FLUSH 10 ML FLUSH IV FLUSH SCH ×2 (07:41→20:53)
[2018-04-25] MEDS: DOCUSATE SODIUM 50 MG/SENNA 8.6 MG TAB PO SCH ×2 (07:41→20:53)
[2018-04-25] MEDS: HYDROCHLOROTHIAZIDE 25 MG TAB PO SCH (07:41)
[2018-04-25] MEDS: FOLIC ACID 1 MG TAB PO SCH (07:42)
[2018-04-25] MEDS: APIXABAN 5 MG TABLET PO SCH ×2 (07:42→20:53)
[2018-04-25] MEDS: INSULIN ASPART SUPPLEMENTAL SCALE SQ SCH ×4 (07:59→20:52)
--- NOTE | 2018-04-25 10:24 | HHI.PR ---
Subjective Remarks Pt seen and examined for follow-up of bradycardia and syncope. He continues to be significantly hypertensive. He reports his headache is better from yesterday but he is starting to feel it come on again and he attributes it to his blood pressure. He also endorses some pressure in his chest which he states is been ongoing for the past 2 weeks. He also attributes this to his blood pressure being elevated. He denies dizziness, visual changes, or palpitations. Objective Vital Signs Date Time Temp Pulse Resp B/P (MAP) Pulse Ox O2 Delivery O2 Flow Rate FiO2 04/25/18 10:07 200/99 (132) 04/25/18 08:03 98.4 50 18 185/105 (131) 98 04/25/18 04:52 49 16 192/104 (133) 98 04/25/18 03:44 98.3 53 18 213/96 (135) 97 04/25/18 00:00 50 04/24/18 23:28 98.8 45 16 169/84 (112) 98 04/24/18 20:30 98.2 48 18 179/97 (124) 94 04/24/18 20:00 47 04/24/18 18:22 173/101 (125) 04/24/18 16:00 97.3 53 20 211/107 (141) 97 193/108 (136) 04/24/18 12:00 97.3 46 20 173/104 (127) 97 I/O 04/24/18 04/24/18 04/24/18 04/25/18 04/25/18 04/25/18 07:00 15:00 23:00 07:00 15:00 23:00 Intake Total 850 ml 266 ml Output Total 4 ml Balance 850 ml 266 ml -4 ml Intake Oral 850 ml IV Total 266 ml Output Urine Total 4 ml # Voids 2 3 Result Diagram: 04/24/18 0620 04/24/18 0545 Objective Remarks GENERAL: WN, WD male resting in bed in [facility]. SKIN: Warm and dry. HEENT: AT/NC. Pupils equal and round. MMM. NECK: Supple no tender LAD or JVD. HEART: RRR no m/r/g. LUNGS: CTAB without wheezes or crackles. ABDOMEN: +BS, soft, NT, ND. EXTREMITIES: No LE edema. 2+ pedal pulses. NEURO: Awake and alert. Nonfocal. PSYCH: Appropriate mood and affect. A/P Assessment and Plan 52 YOWM with history of atrial fibrillation, HTN, HLD, and DM admitted 04/23 for evaluation of syncope. 1. Syncope - CT head negative - Carotid U/S with no hemodynamically significant stenosis - 2D echo ordered, not done yet - Monitor on telemetry - Stop home metoprolol and amiodarone given significant bradycardia - Cardiology consulted, appreciate evaluation 2. Chest pain - Troponin negative x 3 - EKG reviewed by me showing sinus bradycardia with LVH and LBBB - Cardiology following, underwent nuclear stress test yesterday showing matched defects at the apex, no reversible perfusion defects, and EF 43% - Started on Imdur by cardiology - Working to better control blood pressure 3. Bradycardia - Slightly improved since stopping metoprolol and amiodarone - Avoid negative ionotropic meds - Cardiology following 4. DEIRDRE - Improving - Creatinine down to 1.28 from 1.56 - Avoid nephrotoxic agents and continue to closely monitor 5. DM - SSI per protocol - Start Levemir 10 units - Monitor Accuchecks 6. HTN - BPs significantly elevated - Holding home metoprolol given syncope in the setting of bradycardia - Started on Lisinopril and HCTZ - Increase HCTZ to 50 mg - Add amlodipine - Hesitant to go up on Lisinopril given recent DEIRDRE - Monitor BP 7. HLD - Resume home statin 8. Atrial fibrillation - Rate-controlled - Continue Eliquis 9. Headache - Toradol PRN - Antiemetics PRN DVT prophylaxis: On Eliquis Discharge Planning Possibly D/C tomorrow if cleared by cardiology Sana Worthington MD Apr 25, 2018 10:24
[2018-04-25] MEDS ORDERED: amLODIPine BESYLATE 5 MG TAB PO ONE ×2 (10:30→11:30)
--- NOTE | 2018-04-25 11:06 | PD.CARD.PN ---
Subjective Subjective Remarks pt says he can feel his bp up, a bit aggravated, still notes chest tightness Objective Medications Current Medications Medications (Trade) Dose Ordered Sig/Rob Route Start Time Stop Time Status Last Admin (NS Flush) 2 ml UNSCH PRN IV FLUSH 04/23/18 20:15 (NS Flush) 2 ml BID IV FLUSH 04/23/18 21:00 04/25/18 07:41 (Reglan Inj) 5 mg Q6H PRN IV PUSH 04/23/18 20:15 (Tylenol) 650 mg Q6H PRN PO 04/23/18 20:15 04/24/18 05:55 (Vandemere 5-325 Mg) 1 tab Q4H PRN PO 04/23/18 20:15 04/24/18 00:04 (Vandemere 10-325 Mg) 1 tab Q4H PRN PO 04/23/18 20:15 04/24/18 08:50 (Aliya-Colace) 1 tab BID PO 04/23/18 21:00 04/25/18 07:41 (Milk Of Magnesia Liq) 30 ml Q12H PRN PO 04/23/18 20:15 (Senokot) 17.2 mg Q12H PRN PO 04/23/18 20:15 (Dulcolax Supp) 10 mg DAILY PRN RECTAL 04/23/18 20:15 (Lactulose Liq) 30 ml DAILY PRN PO 04/23/18 20:15 (D50w (Vial) Inj) 50 ml UNSCH PRN IV PUSH 04/23/18 20:15 (Glucagon Inj) 1 mg UNSCH PRN OTHER 04/23/18 20:15 (NovoLOG SUPPLEMENTAL SCALE) 1 ACHS SLIDING SCALE SQ 04/23/18 21:00 04/24/18 20:58 (Eliquis) 5 mg BID PO 04/23/18 21:00 04/25/18 07:42 (Folate) 1 mg DAILY PO 04/24/18 09:00 04/29/18 08:59 04/25/18 07:42 (Vitamin B1) 100 mg DAILY PO 04/23/18 21:00 04/25/18 07:41 (Theragran M Tab) 1 tab DAILY PO 04/24/18 09:00 04/29/18 08:59 04/25/18 07:40 (Romazicon Inj) 0.2 mg Q1M PRN IV PUSH 04/23/18 21:00 (Ativan) 1 mg Q4H PRN PO 04/23/18 21:00 (Ativan Inj) 1 mg Q4H PRN IV PUSH 04/23/18 21:00 (Ativan) 2 mg Q2H PRN PO 04/23/18 21:00 (Ativan Inj) 2 mg Q2H PRN IV PUSH 04/23/18 21:00 (Ativan Inj) 2 mg Q1H PRN IV PUSH 04/23/18 21:00 (Ativan Inj) 2 mg Q15M PRN IV PUSH 04/23/18 21:00 (Haldol Inj) 2 mg Q15M PRN IM 04/23/18 21:00 (Prinivil) 10 mg DAILY PO 04/24/18 09:00 04/25/18 07:41 (Toradol Inj) 30 mg Q6H PRN IV PUSH 04/24/18 14:45 04/24/18 15:45 (Catapres) 0.1 mg Q6H PRN PO 04/24/18 16:15 04/25/18 10:07 (Hydrodiuril) 50 mg DAILY PO 04/26/18 09:00 (Norvasc) 5 mg DAILY PO 04/26/18 09:00 (Levemir Inj) 10 units HS SQ 04/25/18 21:00 Vital Signs / I&O Vital Signs Date Time Temp Pulse Resp B/P (MAP) Pulse Ox O2 Delivery O2 Flow Rate FiO2 04/25/18 10:07 200/99 (132) 04/25/18 08:03 98.4 50 18 185/105 (131) 98 04/25/18 04:52 49 16 192/104 (133) 98 04/25/18 03:44 98.3 53 18 213/96 (135) 97 04/25/18 00:00 50 04/24/18 23:28 98.8 45 16 169/84 (112) 98 04/24/18 20:30 98.2 48 18 179/97 (124) 94 04/24/18 20:00 47 04/24/18 18:22 173/101 (125) 04/24/18 16:00 97.3 53 20 211/107 (141) 97 193/108 (136) 04/24/18 12:00 97.3 46 20 173/104 (127) 97 I/O 04/24/18 04/24/18 04/24/18 04/25/18 04/25/18 04/25/18 07:00 15:00 23:00 07:00 15:00 23:00 Intake Total 850 ml 266 ml Output Total 4 ml Balance 850 ml 266 ml -4 ml Intake Oral 850 ml IV Total 266 ml Output Urine Total 4 ml # Voids 2 3 Physical Exam GENERAL: This is a well-nourished, well-developed patient, in no apparent distress. CARDIOVASCULAR: Regular rate and rhythm without murmurs, gallops, or rubs. RESPIRATORY: Clear to auscultation. Breath sounds equal bilaterally. No wheezes , rales, or rhonchi. GASTROINTESTINAL: Abdomen soft, non-tender, nondistended. Normal active bowel sounds MUSCULOSKELETAL: Extremities without clubbing, cyanosis, or edema. NEURO: Alert & Oriented x4 to person, place, time, situation. Moves all ext x4 Imaging Last Impressions Myocardial Perfusion Scan Nuc Med 04/24/18 Signed Impressions: CONCLUSION: 1. Matched defects at the apex. 2. No reversible perfusion defects. 3. Ejection fraction 43%. Carotid Artery Ultrasound 04/24/18 Signed Impressions: CONCLUSION: 1. No hemodynamically significant stenosis in either carotid artery 2. No flow in left vertebral artery Head CT 04/23/181755 Signed Impressions: CONCLUSION: No evidence of acute intracranial pathology. No masses are identified. Chest X-Ray 04/23/181755 Signed Impressions: CONCLUSION: The lungs are clear. Assessment and Plan Problem List: (1) Atypical chest pain ICD Codes: R07.89 - Other chest pain Plan: now s/p non-ischemic nuc stress; will add Imdur given htn (2) HTN (hypertension) ICD Codes: I10 - Essential (primary) hypertension Plan: added imdur, increase yumiko/ccb (3) A-fib ICD Codes: I48.91 - Unspecified atrial fibrillation Plan: anticoagulated, in nsr now (4) Syncope ICD Codes: R55 - Syncope and collapse Status: Acute Plan: unclear etiology, ? 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 Problem Qualifiers (1) Syncope: Qualified Codes: R55 - Syncope and collapse Mikel Jacob MD Apr 25, 2018 11:06
[2018-04-25] MEDS: ISOSORBIDE MONONITRATE 60 MG CR TAB (IMDUR) PO SCH (11:26)
[2018-04-25] MEDS ORDERED: LISINOPRIL 10 MG TAB PO ONE (11:30)
[2018-04-25] MEDS: KETOROLAC TROMETHAMINE 30 MG/ML (IVP) VIAL IV PUSH PRN (17:14)
[2018-04-25] MEDS: LORazepam 2 MG/ML VIAL IV PUSH PRN (17:19)
[2018-04-25] MEDS ORDERED: INSULIN DETEMIR 100 UNITS/ML VIAL SQ SCH (21:00)
[2018-04-26] VITALS (9 sets, daily range): BP systolic 146–189; BP diastolic 75–111; PULSE 52–63; RESP 16–20; TEMP 97.8–99.1; O2SAT 96–98
[2018-04-26] MEDS: cloNIDine HCL 0.1 MG TAB PO PRN ×2 (04:53→17:10)
[2018-04-26] MEDS: KETOROLAC TROMETHAMINE 30 MG/ML (IVP) VIAL IV PUSH PRN ×2 (04:57→17:27)
[2018-04-26] MEDS: ISOSORBIDE MONONITRATE 60 MG CR TAB (IMDUR) PO SCH (07:00)
--- NOTE | 2018-04-26 07:37 | HHI.PR ---
Subjective Remarks Pt seen and examined for follow-up of bradycardia and syncope. Continues to be hypertensive though better with increased doses and medications added from yesterday. Chest pressure has essentially resolved. Pt endorses intermittent tremors, shakiness, headache, and diaphoresis. He states has had tremors that worsen when he is trying to do something like hold his arms out to take a picture; this has been going out for at least the past year. The headaches, diaphoresis, and intermittent bursts of shakiness is new in the last month or so. He states he was adopted so he doesn't know anything about his family history when asked about any family members with pheochromocytoma. He was diagnosed with HTN in his late 30s and had always been stable on 1 or 2 medications. He states the resistance of his blood pressure is something new. States he watches his sodium in his diet. He denies any out of the ordinary stressors in his life. Objective Vital Signs Date Time Temp Pulse Resp B/P (MAP) Pulse Ox O2 Delivery O2 Flow Rate FiO2 04/26/18 04:43 98.6 56 16 186/111 (136) 96 04/26/18 04:00 52 04/26/18 00:00 52 04/25/18 23:23 98.0 50 16 162/96 (118) 96 04/25/18 20:00 51 04/25/18 19:47 98.1 52 16 156/82 (106) 97 04/25/18 15:51 98.5 60 18 166/95 (118) 97 04/25/18 14:33 150/90 (110) 04/25/18 11:03 201/99 (133) 04/25/18 10:07 200/99 (132) 04/25/18 08:03 98.4 50 18 185/105 (131) 98 I/O 04/25/18 04/25/18 04/25/18 04/26/18 04/26/18 04/26/18 07:00 15:00 23:00 07:00 15:00 23:00 Intake Total 750 ml Output Total 4 ml Balance -4 ml 750 ml Intake Oral 750 ml Output Urine Total 4 ml Result Diagram: 04/24/18 0620 04/24/18 0545 Objective Remarks GENERAL: WN, WD male resting in bed in NAD. SKIN: Warm and dry. HEENT: AT/NC. Pupils equal and round. MMM. NECK: Supple no tender LAD or JVD. HEART: Bradycardic with a regular rhythm. LUNGS: CTAB without wheezes or crackles. ABDOMEN: +BS, soft, NT, ND. EXTREMITIES: No LE edema. 2+ pedal pulses. NEURO: Awake and alert. Bilateral hand tremor that worsens when reaching out. PSYCH: Appropriate mood and affect. A/P Assessment and Plan 52 YOWM with history of atrial fibrillation, HTN, HLD, and DM admitted 04/23 for evaluation of syncope. 1. Syncope - CT head negative - Carotid U/S with no hemodynamically significant stenosis - 2D echo results pending - Monitor on telemetry - Stop home metoprolol and amiodarone given significant bradycardia - Cardiology consulted, appreciate evaluation 2. Resistant HTN - BPs significantly elevated though improved with addition of amlodipine and Imdur and increased doses of Lisinopril and HCTZ - Holding home metoprolol given syncope in the setting of bradycardia - Given patients symptoms of recent headaches, diaphoresis, and anxiety will screen for pheo as well as check renin and angiotensin levels for causes of secondary HTN - Continue to closely monitor BP and telemetry 3. Chest pain - Troponin negative x 3 - EKG reviewed by me showing sinus bradycardia with LVH and LBBB - Cardiology following, underwent nuclear stress test showing matched defects at the apex, no reversible perfusion defects, and EF 43% - Started on Imdur by cardiology - Working to better control blood pressure 4. Bradycardia - Slightly improved since stopping metoprolol and amiodarone - Avoid negative ionotropic meds - Cardiology following 5. DEIRDRE - Improved - Creatinine down to 1.28 from 1.56 on admission - Avoid nephrotoxic agents and continue to closely monitor 6. DM - SSI per protocol, required 15 units yesterday - Increase Levemir to 15 units - Monitor Accuchecks - ADA diet - Check A1c 7. HLD - Resume home statin 8. Atrial fibrillation - Rate-controlled - Continue Eliquis 9. Headache - Toradol PRN - Antiemetics PRN DVT prophylaxis: On Eliquis Discharge Planning D/C once BP stabilizes and 24-hour urine complete, hopefully tomorrow Sana Worthington MD Apr 26, 2018 07:37
--- NOTE | 2018-04-26 08:49 | ECHRPT ---
Indication: CARDIOMYOPATHY CONCLUSIONS The left ventricular systolic function is low normal with an estimated ejection fraction in the rang e of 50- 55%. Normal left ventricular size. There is assymetric septal hypertrophy. No regional wall motion abnormalities are present. BP: / HR: Rhythm: MEASUREMENTS (Male / Female) Normal Values Technical Quality: 2D ECHO LV Diastolic Diameter PLAX 5.5 cm 4.2 - 5.9 / 3.9 - 5.3 cm LV Systolic Diameter PLAX 4.9 cm IVS Diastolic Thickness 2.1 cm 0.6 - 1.0 / 0.6 - 0.9 cm LVPW Diastolic Thickness 1.3 cm 0.6 - 1.0 / 0.6 - 0.9 cm LV Relative Wall Thickness 0.6 LVOT Diameter 2.2 cm LA Systolic Diameter LX 4.5 cm 3.0 - 4.0 / 2.7 - 3.8 cm LV Ejection Fraction MOD 4C 50.8 % LV Ejection Fraction 4C AL 51.5 % M-MODE Aortic Root Diameter MM 3.2 cm AV Cusp Separation MM 2.2 cm DOPPLER AV Peak Velocity 124.0 cm/s AV Peak Gradient 6.2 mmHg LVOT Peak Velocity 97.7 cm/s LVOT Peak Gradient 3.8 mmHg AV Area Cont Eq pk 3.0 cm MV Area PHT 2.3 cm Mitral E Point Velocity 62.2 cm/s Mitral A Point Velocity 57.8 cm/s Mitral E to A Ratio 1.1 LV E' Lateral Velocity 5.2 cm/s Mitral E to LV E' Lateral Ratio 12.0 LV E' Septal Velocity 4.0 cm/s Mitral E to LV E' Septal Ratio 15.6 PV Peak Velocity 100.0 cm/s PV Peak Gradient 4.0 mmHg FINDINGS LEFT VENTRICLE The left ventricular systolic function is low normal with an estimated ejection fraction in the rang e of 50- 55%. Normal left ventricular size. There is assymetric septal hypertrophy. No regional wall motion abnormalities are present. RIGHT VENTRICLE Normal right ventricular size and systolic function. LEFT ATRIUM The left atrial size is normal. RIGHT ATRIUM The right atrial size is normal. ATRIAL SEPTUM Normal atrial septal thickness without atrial level shunting by limited color doppler interrogation. AORTA The aortic root and proximal ascending aorta are normal in size on limited imaging. MITRAL VALVE Structurally normal mitral valve. No mitral valve stenosis or regurgitation. TRICUSPID VALVE Structurally normal tricuspid valve. No tricuspid valve stenosis or regurgitation. PULMONARY VALVE The pulmonary valve is not well visualized. VESSELS The inferior vena cava is normal in size. PERICARDIUM No pericardial effusion. Mikel Jacob MD (Electronically Signed) Final Date:26 April 2018 08:48
[2018-04-26 08:50] LABS: CALCIUM 9.3 MG/DL (8.5-10.1); CREATININE 1.28 MG/DL (0.60-1.30)
[2018-04-26] MEDS ORDERED: amLODIPine BESYLATE 5 MG TAB PO SCH (09:00)
[2018-04-26] MEDS: SODIUM CHLORIDE 0.9% FLUSH 10 ML FLUSH IV FLUSH SCH ×2 (09:25→21:49)
[2018-04-26] MEDS: THIAMINE HCL 100 MG TAB PO SCH (09:26)
[2018-04-26] MEDS: APIXABAN 5 MG TABLET PO SCH ×2 (09:26→21:48)
[2018-04-26] MEDS: LISINOPRIL 20 MG TAB PO SCH (09:26)
[2018-04-26] MEDS: MULTIVITAMINS/MINERALS THERAPEUTIC TAB PO SCH (09:27)
[2018-04-26] MEDS: HYDROCHLOROTHIAZIDE 50 MG TAB PO SCH (09:27)
[2018-04-26] MEDS: FOLIC ACID 1 MG TAB PO SCH (09:27)
[2018-04-26] MEDS: DOCUSATE SODIUM 50 MG/SENNA 8.6 MG TAB PO SCH ×2 (09:27→21:00)
[2018-04-26] MEDS: INSULIN ASPART SUPPLEMENTAL SCALE SQ SCH ×4 (09:28→21:50)
[2018-04-26] MEDS: LORazepam 2 MG/ML VIAL IV PUSH PRN (09:37)
--- NOTE | 2018-04-26 09:50 | PD.CARD.PN ---
Subjective Subjective Remarks pt in active etoh w/d, shaking and uncomfortable from it. Objective Medications Current Medications Medications (Trade) Dose Ordered Sig/Rob Route Start Time Stop Time Status Last Admin (NS Flush) 2 ml UNSCH PRN IV FLUSH 04/23/18 20:15 (NS Flush) 2 ml BID IV FLUSH 04/23/18 21:00 04/26/18 09:25 (Reglan Inj) 5 mg Q6H PRN IV PUSH 04/23/18 20:15 (Tylenol) 650 mg Q6H PRN PO 04/23/18 20:15 04/24/18 05:55 ([place] 5-325 Mg) 1 tab Q4H PRN PO 04/23/18 20:15 04/24/18 00:04 ([place] 10-325 Mg) 1 tab Q4H PRN PO 04/23/18 20:15 04/24/18 08:50 (Aliya-Colace) 1 tab BID PO 04/23/18 21:00 04/26/18 09:27 (Milk Of Magnesia Liq) 30 ml Q12H PRN PO 04/23/18 20:15 (Senokot) 17.2 mg Q12H PRN PO 04/23/18 20:15 (Dulcolax Supp) 10 mg DAILY PRN RECTAL 04/23/18 20:15 (Lactulose Liq) 30 ml DAILY PRN PO 04/23/18 20:15 (D50w (Vial) Inj) 50 ml UNSCH PRN IV PUSH 04/23/18 20:15 (Glucagon Inj) 1 mg UNSCH PRN OTHER 04/23/18 20:15 (NovoLOG SUPPLEMENTAL SCALE) 1 ACHS SLIDING SCALE SQ 04/23/18 21:00 04/26/18 09:28 (Eliquis) 5 mg BID PO 04/23/18 21:00 04/26/18 09:26 (Folate) 1 mg DAILY PO 04/24/18 09:00 04/29/18 08:59 04/26/18 09:27 (Vitamin B1) 100 mg DAILY PO 04/23/18 21:00 04/26/18 09:26 (Theragran M Tab) 1 tab DAILY PO 04/24/18 09:00 04/29/18 08:59 04/26/18 09:27 (Romazicon Inj) 0.2 mg Q1M PRN IV PUSH 04/23/18 21:00 (Ativan) 1 mg Q4H PRN PO 04/23/18 21:00 (Ativan Inj) 1 mg Q4H PRN IV PUSH 04/23/18 21:00 04/26/18 09:37 (Ativan) 2 mg Q2H PRN PO 04/23/18 21:00 (Ativan Inj) 2 mg Q2H PRN IV PUSH 04/23/18 21:00 (Ativan Inj) 2 mg Q1H PRN IV PUSH 04/23/18 21:00 (Ativan Inj) 2 mg Q15M PRN IV PUSH 04/23/18 21:00 (Haldol Inj) 2 mg Q15M PRN IM 04/23/18 21:00 (Toradol Inj) 30 mg Q6H PRN IV PUSH 04/24/18 14:45 04/26/18 04:57 (Catapres) 0.1 mg Q6H PRN PO 04/24/18 16:15 04/26/18 04:53 (Hydrodiuril) 50 mg DAILY PO 04/26/18 09:00 04/26/18 09:27 (Levemir Inj) 10 units HS SQ 04/25/18 21:00 04/25/18 20:52 (Norvasc) 10 mg DAILY PO 04/26/18 09:00 04/26/18 09:27 (Prinivil) 20 mg DAILY PO 04/26/18 09:00 04/26/18 09:26 (Imdur) 60 mg DAILY@07 PO 04/25/18 11:30 04/26/18 07:00 Vital Signs / I&O Vital Signs Date Time Temp Pulse Resp B/P (MAP) Pulse Ox O2 Delivery O2 Flow Rate FiO2 04/26/18 08:00 97.8 57 20 162/100 (120) 97 04/26/18 04:43 98.6 56 16 186/111 (136) 96 04/26/18 04:00 52 04/26/18 00:00 52 04/25/18 23:23 98.0 50 16 162/96 (118) 96 04/25/18 20:00 51 04/25/18 19:47 98.1 52 16 156/82 (106) 97 6/24/18 15:51 98.5 60 18 166/95 (118) 97 04/25/18 14:33 150/90 (110) 04/25/18 11:03 201/99 (133) 04/25/18 10:07 200/99 (132) I/O 04/25/18 04/25/18 04/25/18 04/26/18 04/26/18 04/26/18 06:59 14:59 22:59 06:59 14:59 22:59 Intake Total 750 ml Output Total 4 ml Balance -4 ml 750 ml Intake Oral 750 ml Output Urine Total 4 ml Physical Exam GENERAL: tremulous CARDIOVASCULAR: Regular rate and rhythm without murmurs, gallops, or rubs. RESPIRATORY: Clear to auscultation. Breath sounds equal bilaterally. No wheezes , rales, or rhonchi. GASTROINTESTINAL: Abdomen soft, non-tender, nondistended. Normal active bowel sounds MUSCULOSKELETAL: Extremities without clubbing, cyanosis, or edema. NEURO: tremulous Laboratory Laboratory Tests Test 04/26/18 06:37 Blood Urea Nitrogen 18 MG/DL Creatinine 1.28 MG/DL Random Glucose 331 MG/DL Calcium Level 9.3 MG/DL Sodium Level 137 MEQ/L Potassium Level 4.3 MEQ/L Chloride Level 99 MEQ/L Carbon Dioxide Level 27.0 MEQ/L Anion Gap 11 MEQ/L Estimat Glomerular Filtration Rate 59 ML/MIN Imaging Last Impressions Myocardial Perfusion Scan Nuc Med 04/24/18 0000 Signed Impressions: CONCLUSION: 1. Matched defects at the apex. 2. No reversible perfusion defects. 3. Ejection fraction 43%. Carotid Artery Ultrasound 04/24/18 0000 Signed Impressions: CONCLUSION: 1. No hemodynamically significant stenosis in either carotid artery 2. No flow in left vertebral artery Head CT 04/23/181755 Signed Impressions: CONCLUSION: No evidence of acute intracranial pathology. No masses are identified. Chest X-Ray 04/23/181755 Signed Impressions: CONCLUSION: The lungs are clear. Assessment and Plan Problem List: (1) Atypical chest pain ICD Codes: R07.89 - Other chest pain Plan: now s/p non-ischemic nuc stress (2) HTN (hypertension) ICD Codes: I10 - Essential (primary) hypertension Plan: improved on current mgt but difficult due to etoh w/d (3) A-fib ICD Codes: I48.91 - Unspecified atrial fibrillation Plan: anticoagulated, in nsr now (4) Syncope ICD Codes: R55 - Syncope and collapse Status: Acute Plan: unclear etiology, ? bradycardia, rates improved slightly off AV sue agents, echo pending; may benefit from adjunct faculty for medical terminology monitor as outpt (5) Bradycardia ICD Codes: R00.1 - Bradycardia, unspecified Status: Acute Plan: improving as above. (6) Alcohol withdrawal ICD Codes: F10.239 - Alcohol dependence with withdrawal, unspecified Plan: very tremulous, will ask nurse to d/w primary team; will make BP control difficult until resolved. Assessment and Plan will sign off but will be available as needed, pls call with any questions. Problem Qualifiers (1) Syncope: Qualified Codes: R55 - Syncope and collapse Mikel Jacob MD Apr 26, 2018 09:50
[2018-04-26] MEDS: ACETAMINOPHEN/HYDROcodone 325 MG/10 MG TAB PO PRN (13:22)
[2018-04-26 15:57] LABS: HEMOGLOBIN A1C 11.3 % (4.3-6.0)
[2018-04-26] MEDS: INSULIN DETEMIR 100 UNITS/ML VIAL SQ SCH (21:49)
[2018-04-27] VITALS (10 sets, daily range): BP systolic 125–178; BP diastolic 63–116; PULSE 47–88; RESP 16–24; TEMP 98–98.5; O2SAT 95–97
[2018-04-27] MEDS: ISOSORBIDE MONONITRATE 60 MG CR TAB (IMDUR) PO SCH (06:21)
[2018-04-27] MEDS: KETOROLAC TROMETHAMINE 30 MG/ML (IVP) VIAL IV PUSH PRN ×2 (06:51→12:15)
[2018-04-27] MEDS: INSULIN ASPART SUPPLEMENTAL SCALE SQ SCH ×4 (08:00→20:36)
[2018-04-27] MEDS ORDERED: DILTIAZEM HCL 30 MG TAB PO ONE ×2 (08:30→11:15)
--- NOTE | 2018-04-27 08:35 | HHI.PR ---
Subjective Remarks Follow-up for syncope, resistant hypertension, bradycardia, A. fib. Patient reports overall feeling better today. He is noted to be in A. fib with RVR heart rate in 120s on telemetry. He states he does feel his heart racing. He denies any chest pain or shortness of breath. Denies any lightheadedness or dizziness. He states his last alcoholic beverage was over weekend. Objective Vitals Vital Signs Date Time Temp Pulse Resp B/P (MAP) Pulse Ox O2 Delivery O2 Flow Rate FiO2 04/27/18 07:41 98.4 79 20 178/116 (136) 97 04/27/18 05:18 98.0 87 16 125/63 (83) 96 04/27/18 04:00 52 04/27/18 00:43 98.3 47 16 171/102 (125) 97 04/27/18 00:00 58 04/26/18 19:50 98.3 57 16 167/100 (122) 96 04/26/18 16:00 99.1 61 19 189/100 (129) 98 04/26/18 15:00 63 04/26/18 12:00 98.0 58 17 146/75 (98) 97 04/26/18 08:45 61 I/O 04/26/18 04/26/18 04/26/18 04/27/18 04/27/18 04/27/18 07:00 15:00 23:00 07:00 15:00 23:00 Intake Total 720 ml Balance 720 ml Intake Oral 720 ml # Voids 7 Result Diagram: 04/24/18 0620 04/26/18 0637 Imaging Last Impressions Myocardial Perfusion Scan Nuc Med 04/24/18 0000 Signed Impressions: CONCLUSION: 1. Matched defects at the apex. 2. No reversible perfusion defects. 3. Ejection fraction 43%. Carotid Artery Ultrasound 04/24/18 0000 Signed Impressions: CONCLUSION: 1. No hemodynamically significant stenosis in either carotid artery 2. No flow in left vertebral artery Head CT 04/23/181755 Signed Impressions: CONCLUSION: No evidence of acute intracranial pathology. No masses are identified. Chest X-Ray 04/23/181755 Signed Impressions: CONCLUSION: The lungs are clear. Objective Remarks GENERAL: Well-nourished, well-developed middle-aged male patient in NAD. SKIN: Warm and dry. No rash. HEENT: Normocephalic. Atraumatic. Pupils equal and round. Mucous membranes pink and moist. CARDIOVASCULAR: Irregular rate and rhythm. No murmur appreciated. RESPIRATORY: No accessory muscle use. Clear to auscultation. Breath sounds equal bilaterally. GASTROINTESTINAL: Abdomen soft, non-tender, nondistended. Normoactive bowel sounds x4. MUSCULOSKELETAL: No obvious deformities. Extremities without clubbing, cyanosis , or edema. NEUROLOGICAL: Awake and alert. No obvious cranial nerve deficits. Motor grossly within normal limits. Moving all extremities spontaneously. Normal speech. PSYCHIATRIC: Appropriate mood and affect; insight and judgment normal. Medications and IVs Current Medications Medications (Trade) Dose Ordered Sig/Rob Route Start Time Stop Time Status Last Admin (NS Flush) 2 ml UNSCH PRN IV FLUSH 04/23/18 20:15 (NS Flush) 2 ml BID IV FLUSH 04/23/18 21:00 04/26/18 21:49 (Reglan Inj) 5 mg Q6H PRN IV PUSH 04/23/18 20:15 (Tylenol) 650 mg Q6H PRN PO 04/23/18 20:15 04/24/18 05:55 ([place] 5-325 Mg) 1 tab Q4H PRN PO 04/23/18 20:15 04/24/18 00:04 ([place] 10-325 Mg) 1 tab Q4H PRN PO 04/23/18 20:15 04/26/18 13:22 (Aliya-Colace) 1 tab BID PO 04/23/18 21:00 04/26/18 09:27 (Milk Of Magnesia Liq) 30 ml Q12H PRN PO 04/23/18 20:15 (Senokot) 17.2 mg Q12H PRN PO 04/23/18 20:15 (Dulcolax Supp) 10 mg DAILY PRN RECTAL 04/23/18 20:15 (Lactulose Liq) 30 ml DAILY PRN PO 04/23/18 20:15 (D50w (Vial) Inj) 50 ml UNSCH PRN IV PUSH 04/23/18 20:15 (Glucagon Inj) 1 mg UNSCH PRN OTHER 04/23/18 20:15 (NovoLOG SUPPLEMENTAL SCALE) 1 ACHS SLIDING SCALE SQ 04/23/18 21:00 04/26/18 21:50 (Eliquis) 5 mg BID PO 04/23/18 21:00 04/26/18 21:48 (Folate) 1 mg DAILY PO 04/24/18 09:00 04/29/18 08:59 04/26/18 09:27 (Vitamin B1) 100 mg DAILY PO 04/23/18 21:00 04/26/18 09:26 (Theragran M Tab) 1 tab DAILY PO 04/24/18 09:00 04/29/18 08:59 04/26/18 09:27 (Romazicon Inj) 0.2 mg Q1M PRN IV PUSH 04/23/18 21:00 (Ativan) 1 mg Q4H PRN PO 04/23/18 21:00 (Ativan Inj) 1 mg Q4H PRN IV PUSH 04/23/18 21:00 04/26/18 09:37 (Ativan) 2 mg Q2H PRN PO 04/23/18 21:00 (Ativan Inj) 2 mg Q2H PRN IV PUSH 04/23/18 21:00 (Ativan Inj) 2 mg Q1H PRN IV PUSH 04/23/18 21:00 (Ativan Inj) 2 mg Q15M PRN IV PUSH 04/23/18 21:00 (Haldol Inj) 2 mg Q15M PRN IM 04/23/18 21:00 (Toradol Inj) 30 mg Q6H PRN IV PUSH 04/24/18 14:45 04/27/18 06:51 (Catapres) 0.1 mg Q6H PRN PO 04/24/18 16:15 04/26/18 17:10 (Hydrodiuril) 50 mg DAILY PO 04/26/18 09:00 04/26/18 09:27 (Norvasc) 10 mg DAILY PO 04/26/18 09:00 04/26/18 09:27 (Prinivil) 20 mg DAILY PO 04/26/18 09:00 04/26/18 09:26 (Imdur) 60 mg DAILY@07 PO 04/25/18 11:30 04/27/18 06:21 (Levemir Inj) 15 units HS SQ 04/26/18 21:00 04/26/18 21:49 (Cardizem) 30 mg ONCE ONCE PO 04/27/18 08:30 04/27/18 08:31 UNV A/P Problem List: (1) Syncope ICD Code: R55 - Syncope and collapse Status: Acute (2) Bradycardia ICD Code: R00.1 - Bradycardia, unspecified Status: Acute (3) A-fib ICD Code: I48.91 - Unspecified atrial fibrillation (4) HTN (hypertension) ICD Code: I10 - Essential (primary) hypertension (5) Renal insufficiency ICD Code: N28.9 - Disorder of kidney and ureter, unspecified (6) Alcohol use ICD Code: Z78.9 - Other specified health status (7) DM (diabetes mellitus) ICD Code: E11.9 - Type 2 diabetes mellitus without complications Assessment and Plan 52 YOWM with history of atrial fibrillation, HTN, HLD, and DM admitted 04/23 for evaluation of syncope. Syncope - CT head negative - Carotid U/S with no hemodynamically significant stenosis - 2D echo with EF 50-55% - Monitor on telemetry - Stopped home metoprolol and amiodarone given significant bradycardia upon arrival - Cardiology consulted, appreciate assistance - Symptoms resolved Resistant HTN - BPs significantly elevated though improved with addition of amlodipine and Imdur and increased doses of Lisinopril and HCTZ - Holding home metoprolol given syncope in the setting of bradycardia - Given patients symptoms of recent headaches, diaphoresis, and anxiety will screen for pheo as well as check renin and angiotensin levels for causes of secondary HTN - Continue to closely monitor BP and telemetry Chest pain - Troponin negative x 3 - EKG reviewed by me showing sinus bradycardia with LVH and LBBB - Cardiology following, underwent nuclear stress test showing matched defects at the apex, no reversible perfusion defects, and EF 43% - Started on Imdur by cardiology - Working to better control blood pressure - Chest pain resolved Bradycardia - Improved since stopping metoprolol and amiodarone - Avoid negative ionotropic meds - Cardiology signed off. - Patient now with RVR, see below DEIRDRE - Improved - Creatinine down to 1.28 from 1.56 on admission - Avoid nephrotoxic agents and continue to closely monitor DM - SSI per protocol - Increased Levemir to 15 units - Monitor Accuchecks - ADA diet - HgbA1c 11.3 - Consult inclusion special educator and die designer HLD - Resumed home statin Atrial fibrillation with RVR: - patient now with RVR on telemetry - EKG reviewed, shows Afib RVR with HR 126 - Continue Eliquis - Discussed with Dr. Jacob, recommends starting Cardizem -1430hrs: Patient's heart rate still uncontrolled despite 3 doses of po Cardizem, no IV cardizem available. Patient was given IV metoprolol 5mg x1 with good response. Discussed with Dr. Sullivan, will start the patient back on metoprolol at lower dose of 50mg bid Headache - Toradol PRN - Antiemetics PRN - Resolved DVT prophylaxis: On Eliquis Discharge Planning Discharge pending improvement of heart rate and blood pressure. Also needs to complete 24hr urine collection. Problem Qualifiers (1) Syncope: Qualified Codes: R55 - Syncope and collapse Yane Ford PA-C Apr 27, 2018 08:35
[2018-04-27] MEDS: DOCUSATE SODIUM 50 MG/SENNA 8.6 MG TAB PO SCH ×2 (08:44→20:35)
[2018-04-27] MEDS: FOLIC ACID 1 MG TAB PO SCH (08:45)
[2018-04-27] MEDS: APIXABAN 5 MG TABLET PO SCH ×2 (08:45→20:35)
[2018-04-27] MEDS: THIAMINE HCL 100 MG TAB PO SCH (08:45)
[2018-04-27] MEDS: MULTIVITAMINS/MINERALS THERAPEUTIC TAB PO SCH (08:45)
[2018-04-27] MEDS: LISINOPRIL 20 MG TAB PO SCH (08:46)
[2018-04-27] MEDS: SODIUM CHLORIDE 0.9% FLUSH 10 ML FLUSH IV FLUSH SCH ×2 (08:46→20:35)
[2018-04-27] MEDS: HYDROCHLOROTHIAZIDE 50 MG TAB PO SCH (08:46)
[2018-04-27] MEDS ORDERED: METOPROLOL TARTRATE 5 MG/5 ML VIAL IV PUSH ONE (12:00)
[2018-04-27] MEDS ORDERED: DILTIAZEM HCL 30 MG TAB PO SCH (13:00)
[2018-04-27] MEDS ORDERED: METOPROLOL TARTRATE 50 MG TAB PO ONE (14:30)
[2018-04-27] MEDS: ACETAMINOPHEN/HYDROcodone 325 MG/10 MG TAB PO PRN ×2 (15:54→22:16)
[2018-04-27] MEDS ORDERED: cloNIDine HCL 0.1 MG TAB PO ONE (18:30)
[2018-04-27] MEDS: LORazepam 2 MG/ML VIAL IV PUSH PRN (18:53)
[2018-04-27] MEDS: INSULIN DETEMIR 100 UNITS/ML VIAL SQ SCH (20:35)
[2018-04-27] MEDS: METOPROLOL TARTRATE 50 MG TAB PO SCH (20:35)
[2018-04-28] VITALS (8 sets, daily range): BP systolic 145–202; BP diastolic 93–123; PULSE 55–122; RESP 17–20; TEMP 98–99.4; O2SAT 94–97
[2018-04-28] MEDS: ISOSORBIDE MONONITRATE 60 MG CR TAB (IMDUR) PO SCH (06:52)
[2018-04-28] MEDS: THIAMINE HCL 100 MG TAB PO SCH (08:15)
[2018-04-28] MEDS: APIXABAN 5 MG TABLET PO SCH ×2 (08:15→20:49)
[2018-04-28] MEDS: MULTIVITAMINS/MINERALS THERAPEUTIC TAB PO SCH (08:15)
[2018-04-28] MEDS: HYDROCHLOROTHIAZIDE 50 MG TAB PO SCH (08:15)
[2018-04-28] MEDS: FOLIC ACID 1 MG TAB PO SCH (08:15)
[2018-04-28] MEDS: METOPROLOL TARTRATE 50 MG TAB PO SCH (08:15)
[2018-04-28] MEDS: SODIUM CHLORIDE 0.9% FLUSH 10 ML FLUSH IV FLUSH SCH ×2 (08:16→20:49)
[2018-04-28] MEDS: LISINOPRIL 20 MG TAB PO SCH ×2 (08:16→20:48)
[2018-04-28] MEDS: DOCUSATE SODIUM 50 MG/SENNA 8.6 MG TAB PO SCH ×2 (08:16→20:49)
--- NOTE | 2018-04-28 09:05 | HHI.PR ---
Subjective Remarks F/u fib RVR. BP remains elevated complains of right sided throbbing headache head CT negative for bleed Objective Vitals Vital Signs Date Time Temp Pulse Resp B/P (MAP) Pulse Ox O2 Delivery O2 Flow Rate FiO2 04/28/18 08:00 98.3 105 20 164/111 (128) 96 04/28/18 04:00 98.0 59 17 145/97 (113) 96 04/28/18 03:56 72 04/28/18 00:00 98.1 55 17 155/93 (113) 95 04/28/18 00:00 Room Air 04/27/18 23:48 64 04/27/18 21:22 98.5 65 18 177/94 (121) 95 04/27/18 21:20 Room Air 04/27/18 20:37 82 17 174/116 (135) 95 04/27/18 18:12 98.0 82 16 171/102 (125) 97 04/27/18 17:34 18 04/27/18 14:10 16 04/27/18 11:02 98.3 88 24 155/105 (122) 97 I/O 04/27/18 04/27/18 04/27/18 04/28/18 04/28/18 04/28/18 07:00 15:00 23:00 07:00 15:00 23:00 Intake Total 720 ml 120 ml Balance 720 ml 120 ml Intake Oral 720 ml 120 ml # Voids 1 # Bowel Movements 0 Result Diagram: 04/24/18 0620 04/26/18 0637 Imaging Last Impressions Myocardial Perfusion Scan Nuc Med 04/24/18 0000 Signed Impressions: CONCLUSION: 1. Matched defects at the apex. 2. No reversible perfusion defects. 3. Ejection fraction 43%. Carotid Artery Ultrasound 04/24/18 0000 Signed Impressions: CONCLUSION: 1. No hemodynamically significant stenosis in either carotid artery 2. No flow in left vertebral artery Head CT 04/23/181755 Signed Impressions: CONCLUSION: No evidence of acute intracranial pathology. No masses are identified. Chest X-Ray 04/23/181755 Signed Impressions: CONCLUSION: The lungs are clear. Objective Remarks GENERAL: Well-nourished, well-developed middle-aged male patient in [facility]. SKIN: Warm and dry. No rash. CARDIOVASCULAR: Irregular rate and rhythm. No murmur appreciated. RESPIRATORY: No accessory muscle use. Clear to auscultation. Breath sounds equal bilaterally. GASTROINTESTINAL: Abdomen soft, non-tender, nondistended. Normoactive bowel sounds x4. MUSCULOSKELETAL: No obvious deformities. Extremities without clubbing, cyanosis , or edema. NEUROLOGICAL: Awake and alert. No obvious cranial nerve deficits. Motor grossly within normal limits. Moving all extremities spontaneously. Normal speech. PSYCHIATRIC: Appropriate mood and affect; insight and judgment normal. Procedures none A/P Problem List: (1) Syncope ICD Code: R55 - Syncope and collapse Status: Acute (2) Bradycardia ICD Code: R00.1 - Bradycardia, unspecified Status: Acute (3) A-fib ICD Code: I48.91 - Unspecified atrial fibrillation (4) HTN (hypertension) ICD Code: I10 - Essential (primary) hypertension (5) Renal insufficiency ICD Code: N28.9 - Disorder of kidney and ureter, unspecified (6) Alcohol use ICD Code: Z78.9 - Other specified health status (7) DM (diabetes mellitus) ICD Code: E11.9 - Type 2 diabetes mellitus without complications Assessment and Plan 52 YO WM with history of atrial fibrillation, HTN, HLD, and DM admitted 04/23 for evaluation of syncope. Syncope - CT head negative - Carotid U/S with no hemodynamically significant stenosis - 2D echo with EF 50-55% - Monitor on telemetry - Stopped home metoprolol and amiodarone given significant bradycardia upon arrival - Cardiology consulted, appreciate assistance. Maybe related to bradycardia may need exterminator OP monitoring - Symptoms resolved Resistant HTN - BPs significantly elevated on multiple medications of amlodipine Imdur Lisinopril and HCTZ. Will increase lisinopril as well as Lopressor. Consider prazosin or hydralazine - Given patients symptoms of recent headaches, diaphoresis, and anxiety will screen for pheo as well as check renin and angiotensin levels for causes of secondary HTN - Continue to closely monitor BP and telemetry Chest pain - Troponin negative x 3 - EKG reviewed by me showing sinus bradycardia with LVH and LBBB - Cardiology following, underwent nuclear stress test showing matched defects at the apex, no reversible perfusion defects, and EF 43% - Started on Imdur by cardiology - Working to better control blood pressure - Chest pain resolved Bradycardia - Improved since stopping metoprolol and amiodarone - Avoid negative ionotropic meds Atrial fibrillation with RVR: - patient now with RVR on telemetry - EKG reviewed, shows Afib RVR with HR 126 - Continue Eliquis - Discussed with Dr. Jacob, recommends starting Cardizem -1430hrs 04/27: Patient's heart rate still uncontrolled despite 3 doses of po Cardizem, no IV cardizem available. Patient was given IV metoprolol 5mg x1 with good response. Ct metoprolol 75 mg bid DEIRDRE - Improved - Creatinine down to 1.28 from 1.56 on admission - Avoid nephrotoxic agents and continue to closely monitor DM - SSI per protocol - Add Levemir 6 units in the morning continue Levemir 15 units - Monitor Accuchecks - ADA diet - HgbA1c 11.3 - Consult life educator and hotel operations manager HLD - Resumed home statin Headache sounds like migraine - Toradol PRN - Antiemetics PRN -Add Fioricet DVT prophylaxis: On Eliquis Discharge Planning DC when BP much improved Problem Qualifiers (1) Syncope: Qualified Codes: R55 - Syncope and collapse Lloyd Santiago MD Apr 28, 2018 09:05
[2018-04-28] MEDS: INSULIN DETEMIR 100 UNITS/ML VIAL SQ SCH ×2 (09:49→20:49)
[2018-04-28] MEDS: INSULIN ASPART SUPPLEMENTAL SCALE SQ SCH ×4 (09:50→20:49)
[2018-04-28 11:58] LABS: RENIN <0.6 ng/mL/h
[2018-04-28] MEDS: ACETAMINOPHEN/HYDROcodone 325 MG/10 MG TAB PO PRN ×2 (12:20→16:38)
[2018-04-28] MEDS: cloNIDine HCL 0.1 MG TAB PO PRN (15:15)
[2018-04-28] MEDS: METOPROLOL TARTRATE 25 MG TAB PO SCH (20:48)
[2018-04-28] MEDS: ACETAMIN 325 MG/BUTALBITAL 50 MG/CAFFEINE 40 MG TAB PO PRN (20:48)
--- NOTE | 2018-04-28 21:52 | EKG ---
Date Performed: 04/27/2018 Time Performed: 07:50:28 PTAGE: 52 years EKG: ATRIAL FIBRILLATION WITH RAPID VENTRICULAR RESPONSE INDETERMINATE AXIS DEVIATION POSSIBLE A NTERIOR MYOCARDIAL INFARCTION ABNORMAL ECG PREVIOUS TRACING : 04/24/2018 05.46 Compared to previous tracing, SR no longer present DOCTOR: Pankaj Parikh Interpretating Date/Time 04/28/2018 21:51:25
[2018-04-29] VITALS (9 sets, daily range): BP systolic 122–176; BP diastolic 90–125; PULSE 53–126; RESP 16–18; TEMP 97.9–98.6; O2SAT 95–97
[2018-04-29] MEDS: ISOSORBIDE MONONITRATE 60 MG CR TAB (IMDUR) PO SCH (06:50)
[2018-04-29] MEDS: SODIUM CHLORIDE 0.9% FLUSH 10 ML FLUSH IV FLUSH SCH ×2 (09:00→20:57)
[2018-04-29] MEDS: DOCUSATE SODIUM 50 MG/SENNA 8.6 MG TAB PO SCH ×2 (10:05→20:55)
[2018-04-29] MEDS: APIXABAN 5 MG TABLET PO SCH ×2 (10:05→20:56)
[2018-04-29] MEDS: THIAMINE HCL 100 MG TAB PO SCH (10:05)
[2018-04-29] MEDS: LISINOPRIL 20 MG TAB PO SCH ×2 (10:05→20:55)
[2018-04-29] MEDS: HYDROCHLOROTHIAZIDE 50 MG TAB PO SCH (10:06)
[2018-04-29] MEDS: METOPROLOL TARTRATE 25 MG TAB PO SCH ×2 (10:06→20:56)
[2018-04-29] MEDS: ACETAMIN 325 MG/BUTALBITAL 50 MG/CAFFEINE 40 MG TAB PO PRN ×2 (10:07→17:29)
[2018-04-29] MEDS: INSULIN ASPART SUPPLEMENTAL SCALE SQ SCH ×4 (10:10→20:57)
[2018-04-29] MEDS: INSULIN DETEMIR 100 UNITS/ML VIAL SQ SCH ×2 (10:10→20:56)
[2018-04-29] MEDS: cloNIDine HCL 0.1 MG TAB PO PRN (11:34)
[2018-04-29] MEDS: ACETAMINOPHEN/HYDROcodone 325 MG/10 MG TAB PO PRN (12:11)
[2018-04-29] MEDS ORDERED: DILTIAZEM HCL 60 MG TAB PO ONE (14:00)
--- NOTE | 2018-04-29 15:31 | HHI.PR ---
Subjective Remarks Hypertension and tachycardia still show instability. Patient complains of headache. Further adjustments needed in the patient's treatments. Objective Vital Signs Date Time Temp Pulse Resp B/P (MAP) Pulse Ox O2 Delivery O2 Flow Rate FiO2 04/29/18 12:00 83 04/29/18 08:00 106 04/29/18 08:00 98.3 71 18 172/125 (141) 97 04/29/18 07:00 Room Air 04/29/18 04:03 82 04/29/18 04:00 97.9 53 18 155/97 (116) 95 04/29/18 00:24 85 04/29/18 00:00 Room Air 04/29/18 00:00 98.1 59 18 147/90 (109) 96 04/28/18 20:07 122 04/28/18 20:00 99.4 91 18 162/109 (126) 96 04/28/18 20:00 Room Air 04/28/18 16:00 98.5 115 20 202/114 (143) 94 04/28/18 16:00 117 I/O 04/28/18 04/28/18 04/28/18 04/29/18 04/29/18 04/29/18 07:00 15:00 23:00 07:00 15:00 23:00 Intake Total 120 ml 480 ml 120 ml Balance 120 ml 480 ml 120 ml Intake Oral 120 ml 480 ml 120 ml # Voids 1 3 1 # Bowel Movements 0 1 0 Result Diagram: 04/26/18 0637 Objective Remarks GENERAL: NAD, A&Ox3 HEAD: Normocephalic. NECK: Supple, trachea midline. No lymphadenopathy. EYES: No scleral icterus. No injection or drainage. CARDIOVASCULAR: Regular rate and rhythm without murmurs, gallops, or rubs. RESPIRATORY: Breath sounds equal bilaterally. No accessory muscle use. GASTROINTESTINAL: Abdomen soft, non-tender, nondistended. MUSCULOSKELETAL: No cyanosis, or edema. SKIN: Warm and dry. NEURO: No focal neurological deficitis. A/P Problem List: (1) Atrial fibrillation with RVR ICD Code: I48.91 - Unspecified atrial fibrillation (2) Hypertensive urgency ICD Code: I16.0 - Hypertensive urgency Status: Acute (3) A-fib ICD Code: I48.91 - Unspecified atrial fibrillation Assessment and Plan 52-year-old male admitted with hypertensive urgency and intrafibrillation with RVR, syncopal episode related to these conditions. Syncope Bradycardia Appears to have been related to bradycardia and hypotension from treatment [place] Treatments have been readjusted Avoiding amiodarone and using beta blockers with caution A. fib with RVR Not yet stable Cardizem added, amlodipine discontinued Hypertensive urgency Amlodipine discontinued and Cardizem added as a treatment for the added benefit of rate controlled Chest pain Negative workup DEIRDRE Improving Likely related to hypotension and syncope Follow renal function Diabetes mellitus type 2 Follow blood sugars Insulin sliding scale Diabetic diet Continue Levemir Hyperlipidemia Continue present treatment Follow as an outpatient Headache As needed pain treatments Treat hypertension DVT prophylaxis Eliquis Discharge Planning Improvement in blood pressure in better control of tachycardia needed first Chava Saldivar MD Apr 29, 2018 15:31
[2018-04-30] VITALS: BP 120/82; PULSE 70; RESP 18; TEMP 98; O2SAT 96
[2018-04-30 00:06] VITALS: PULSE 111
[2018-04-30 04:00] VITALS: BP 110/85; PULSE 78; RESP 18; TEMP 98.2; O2SAT 95
[2018-04-30 04:09] VITALS: PULSE 66
[2018-04-30] MEDS: ISOSORBIDE MONONITRATE 60 MG CR TAB (IMDUR) PO SCH (06:46)
[2018-04-30 07:56] VITALS: PULSE 101
[2018-04-30 08:00] VITALS: BP 168/98; PULSE 62; RESP 18; TEMP 98.8; O2SAT 97
[2018-04-30] MEDS ORDERED: CLON.1 PO (08:25)
[2018-04-30] MEDS ORDERED: FURO1TAB62 PO (08:25)
[2018-04-30] MEDS ORDERED: DILT240C44 PO (08:25)
[2018-04-30] MEDS ORDERED: METO50TA PO (08:25)
[2018-04-30] MEDS ORDERED: DILTIAZEM-CD 240 MG CAP ER PO SCH (09:00)
[2018-04-30] MEDS: LISINOPRIL 20 MG TAB PO SCH (09:08)
[2018-04-30] MEDS: THIAMINE HCL 100 MG TAB PO SCH (09:09)
[2018-04-30] MEDS: METOPROLOL TARTRATE 25 MG TAB PO SCH (09:09)
[2018-04-30] MEDS: APIXABAN 5 MG TABLET PO SCH (09:09)
[2018-04-30] MEDS: DOCUSATE SODIUM 50 MG/SENNA 8.6 MG TAB PO SCH (09:09)
[2018-04-30] MEDS: HYDROCHLOROTHIAZIDE 50 MG TAB PO SCH (09:09)
[2018-04-30] MEDS: INSULIN ASPART SUPPLEMENTAL SCALE SQ SCH (09:10)
[2018-04-30] MEDS: SODIUM CHLORIDE 0.9% FLUSH 10 ML FLUSH IV FLUSH SCH (09:10)
[2018-04-30] MEDS: INSULIN DETEMIR 100 UNITS/ML VIAL SQ SCH (09:10)
[2018-04-30] MEDS: ACETAMIN 325 MG/BUTALBITAL 50 MG/CAFFEINE 40 MG TAB PO PRN (09:19)
--- NOTE | 2018-04-30 09:49 | HHI.DS ---
Discharge Summary Admission Date Apr 26, 2018 at 16:14 Discharge Date: Apr 30, 2018 Admitting Diagnosis (1) Syncope ICD Code: R55 - Syncope and collapse Diagnosis: Principal Status: Acute (2) Bradycardia ICD Code: R00.1 - Bradycardia, unspecified Diagnosis: Principal Status: Acute (3) A-fib ICD Code: I48.91 - Unspecified atrial fibrillation Diagnosis: Principal (4) HTN (hypertension) ICD Code: I10 - Essential (primary) hypertension Diagnosis: Principal (5) Renal insufficiency ICD Code: N28.9 - Disorder of kidney and ureter, unspecified Diagnosis: Principal (6) Alcohol use ICD Code: Z78.9 - Other specified health status Diagnosis: Secondary (7) DM (diabetes mellitus) ICD Code: E11.9 - Type 2 diabetes mellitus without complications Diagnosis: Secondary Procedures none Brief History - From Admission This is a 52-year-old male with a PMH of A. fib on Eliquis, HTN, Hyperlipidemia , DM and h/o Alcohol Abuse who was brought to the ER after syncopal event. Reports dizziness, lightheadedness prior to syncope. States he's had h/o similar symptoms in the past for which he was being seen by his Mechanical Artist in [place], however he recently moved here 2 months ago and doesn't have local Mechanical Artist. Also admits to history of heavy alcohol abuse, drinks 1/5th of vodka regularly, however states he quit drinking after Day and has had worsening dizziness and "shakiness" since then. Notes associated chest pressure , substernal, intermittent, moderate, 6/10, nonradiating. On arrival, BP 233/ 109, HR 45, O2 sat 98% on RA, Afebrile. S/p Clonidine in ER. CBC unremarkable. Chemistry unremarkable except for creatinine 1.56, no previous labs for comparison. Troponin negative. INR 1.1. CXR with no acute findings. CT Head negative. CBC/BMP: 04/26/18 0637 Significant Findings Laboratory Tests Test 04/27/18 17:20 PE at Discharge GENERAL: Well-nourished, well-developed middle-aged male patient in [facility]. SKIN: Warm and dry. No rash. CARDIOVASCULAR: Irregular rate and rhythm. No murmur appreciated. RESPIRATORY: No accessory muscle use. Clear to auscultation. Breath sounds equal bilaterally. GASTROINTESTINAL: Abdomen soft, non-tender, nondistended. Normoactive bowel sounds x4. MUSCULOSKELETAL: No obvious deformities. Extremities without clubbing, cyanosis , or edema. NEUROLOGICAL: Awake and alert. No obvious cranial nerve deficits. Motor grossly within normal limits. Moving all extremities spontaneously. Normal speech. PSYCHIATRIC: Appropriate mood and affect; insight and judgment normal. Hospital Course Mr. Moore is a 52-year-old male. He has a trip fibrillation at baseline and hypertension. He came in secondary to hypertensive urgency and had complications of syncope and bradycardia, likely related to numerous blood pressure treatments and a recent addition of amiodarone which seem to accentuate his blood pressure treatments. After adjusting blood pressure treatments patient had problems with A. fib RVR. At this point diltiazem has been added for rate control blood pressure medications have been further adjusted for good blood pressure control. Today the patient demonstrate stability overnight with blood pressures and heart rate. Medically clear and stable for discharge home today on new treatments as listed below. Pt Condition on Discharge: Stable Discharge Disposition: Discharge Home Discharge Time: <= 30 minutes Discharge Instructions DIET: Follow Instructions for: Heart Healthy Diet Activities you can perform: Regular-No Restrictions Follow up Referrals: PCP Follow-up - 2 Weeks PCP Follow-up @ [facility] with CYNTHIA POTTS New Medications: Furosemide (Lasix) 20 Mg Tab 20 MG PO DAILY for Fluid Balance, #60 TAB 0 Refills Take an additional dose daily for any rapid weight gain or swelling. Metoprolol Tartrate (Metoprolol Tartrate) 50 Mg Tab 50 MG PO BID for Blood Pressure Management, #60 TAB 0 Refills Clonidine (Catapres) 0.1 Mg Tab 0.1 MG PO Q6H PRN for SBP>180, DBP>95, #60 TAB Diltiazem CD 24 HR (Diltiazem CD 24 HR) 240 Mg Caper 240 MG PO DAILY for Blood Pressure Management, #30 CAP Continued Medications: Apixaban (Eliquis) 5 Mg Tab 5 MG PO BID for Blood Clot Prevention, #60 TAB 0 Refills Insulin Human NPH Inj (Novolin N Inj) 1,000 Unit/10 Ml Vial 0 SQ BID for Blood Sugar Management, #10 ML 0 Refills Sliding Scale As Directed. Insulin Human Regular Inj (Novolin R Inj) 1,000 Unit/10 Ml Vial 1-9 UNITS SQ ACHS for Blood Sugar Management, #10 ML 0 Refills Max dose at bedtime:( )units; sugars less than 70,(0) units; sugars 150-199,(1)unit; sugars 200-249,(3)units; sugars 250-299,(5) units; sugars 300-349,(7)units; sugars greater than 349,(9)units Lisinopril (Lisinopril) 40 Mg Tab 40 MG PO DAILY for Blood Pressure Management, #30 TAB 0 Refills Simvastatin (Zocor) 80 Mg Tab 80 MG PO HS for Cholesterol Management, #30 TAB 0 Refills Discontinued Medications: Amiodarone (Amiodarone) 200 Mg Tab 200 MG PO DAILY for Regulate Heart Beat, #30 TAB 0 Refills Clonidine (Catapres) 0.3 Mg Tab 0.3 MG PO TID for Blood Pressure Management, #60 TAB 0 Refills Furosemide (Lasix) 80 Mg Tab 80 MG PO DAILY, #30 TAB 0 Refills Metoprolol Tartrate (Metoprolol Tartrate) 100 Mg Tab 100 MG PO BID, #60 TAB 0 Refills Chava Saldivar MD Apr 30, 2018 09:49
[2018-04-30 20:36] LABS: METANEPHRINE 24 166 mcg/24 h; METANEPHRINE 24 COLLECTION DUR 24 h; NORMETANEPHRINE 24 563 mcg/24 h; TOTAL METANEPHRINE 729 mcg/24 h; URINE TOTAL VOLUME 3025 mL
[2018-05-01 11:45] LABS: COLLECTION DURATION 24 h; URINE DOPAMINE 212 mcg/24 h (65-400); URINE EPINEPHRINE 12 mcg/24 h (<21); URINE NOREPINEPHRINE 82 mcg/24 h (15-80); URINE TOTAL VOLUME 3025 mL
== END 2018-04-30 11:39 | disposition home or self-care (01) | DRG 305 ==
LOC: NEPE 17:28 → NEDA 20:06 → NEPGCP 21:55 → OBSVTOIN 04-26 16:14 → N04B 04-27 21:28
PROVIDERS: ADMIT Hospitalist; ATTEND Hospitalist
DX: I16.0 Hypertensive urgency (principal); N17.9 Acute kidney failure, unspecified; R00.1 Bradycardia, unspecified; I95.9 Hypotension, unspecified; I48.0 Paroxysmal atrial fibrillation; F10.239 Alcohol dependence with withdrawal, unspecified; R55 Syncope and collapse; I48.2 Chronic atrial fibrillation; R51 Headache; F41.9 Anxiety disorder, unspecified; R07.89 Other chest pain; E11.9 Type 2 diabetes mellitus without complications; I10 Essential (primary) hypertension; E78.5 Hyperlipidemia, unspecified; I44.7 Left bundle-branch block, unspecified; Z72.0 Tobacco use; Z79.01 Long term (current) use of anticoagulants; Z79.4 Long term (current) use of insulin
CPT/HCPCS: 70450; 71045; 78452; 80048; 80053; 80307; 81001; 82088; 82384; 82550; 82552; 82948; 83036; 83735; 83835; 84244; 84443; 84484; 85025; 85610; 85730; 93005; 93017; 93306; 93880; 96361; 96372; 96374; 96375; 96376; A9502; G0378; J1815; J1885; J2060; J2785; J7030